=== PATIENT | female | born 1940 | race Caucasian/White ===

== ENCOUNTER → 2019-05-13 13:04 | Outpatient (CLI) | payer MEDICARE, OTHER, SELFPAY ==
--- NOTE | 2019-05-13 | DI.US.S_ITS ---
PROCEDURE: US PARACENTESIS INDICATIONS: ANEMIA, ascites TECHNIQUE: The indications, alternatives, benefits, risks, and complications of the procedure were explained to the patient. Written informed consent was obtained and placed in the chart. The abdomen and pelvis were examined sonographically, and an appropriate site was chosen for paracentesis. The skin was prepared and draped in the usual sterile fashion, and 1% lidocaine was infiltrated from the skin down through the peritoneal surface. A 19-gauge catheter-covered needle was then introduced into the peritoneal space, the catheter was advanced and the needle was withdrawn, and thereafter peritoneal fluid was withdrawn. The catheter was then removed and a dressing was applied. The fluid was discarded if the clinician did not order diagnostic testing of the fluid. COMPARISON: None. FINDINGS: Access site: Right lateral abdomen body wall into the largest pocket of ascites present across the abdomen and pelvis. Needle: One-Step centesis catheter with introducer needle. Fluid volume and description: A slightly serous colored of clear fluid was obtained. 2500 cc. Fluid sent for diagnostic testing: Fluid sent at the request of the ordering health care provider with specific tests from the provider to the laboratory staff. Medications: 1% lidocaine for local anaesthesia. Complications: None. IMPRESSION: Successful ultrasound-guided paracentesis. Dictated by: Srinivasan Cantu M.D. on 05/13/2019 at 16:20 Approved by: Srinivasan Cantu M.D. on 05/13/2019 at 16:21
--- NOTE | 2019-05-13 | PATH_ITS ---
Note [facility] Accession Number: [id number] TESTS RESULT FLAG UNITS REF RANGE LAB Clinician Provided Cytology Information No. of containers..01 Other (Miscellaneous) 01 PARACENTESIS Clinician ICD10: 01 [place] K18.8 K74.60 D64.9 DIAGNOSIS: 02 PARACENTESIS NEGATIVE FOR MALIGNANT CELLS. MESOTHELIAL CELLS ARE PRESENT. Pathologist ICD10: 02 K74.60 02 Valentine Cash MD, Pathologist NPI- [id number] Ron Harris, Security Representative ([facility]) 01 80 CC, YELLOW, CLEAR /LCS 08/26/1840 0000 Local FLAG LEGEND: L-Low Normal,H-High Normal,LL-Alert Low,HH-Alert High <-Panic Low,>-Panic High,A-Abnormal,AA-Critical Abnormal Performed at: 01 =Z [facility] [address], [place] [address] Nain Wilson MD, 02 LCLWA [facility] [address] [place] [id number] Nilda Neville MD, Performed at: 01 [facility] [address], [place], [place] [id number] MD Nain Wilson MD Phone: [phone]
[2019-05-13 16:28] LABS: Albumin Body Fluid < 1.0 g/dL; Total Protein Body Fluid < 2.0 g/dL
[2019-05-13 16:32] LABS: Body Fluid Tot Nucleated Cells 159 /uL
[2019-05-13 16:36] LABS: Body Fluid Color YELLOW; Body Fluid Red Blood Cells < 1000 /uL
[2019-05-13 16:37] LABS: Body Fluid Appearance CLEAR; Body Fluid Clotted? NO CLOTS PRESENT
[2019-05-13 17:18] LABS: Eosinophils Body Fluid 1 %; Mononuclear WBC Body Fluid 72 %; Polynuclear WBC Body Fluid 13 %
[2019-05-13 17:20] LABS: Other Cells Body Fluid 14 %
== END ==
PROVIDERS: PCP Family Medicine; Visit Provider Student in an Organized Health Care Education/Training Program
DX: R18.8 Other ascites (principal); K74.60 Unspecified cirrhosis of liver; D64.9 Anemia, unspecified
CPT/HCPCS: 49083; 82042; 84157; 87070; 87075; 87205; 89051

== ENCOUNTER 2019-05-14 08:01 | Day surgery (SDC) | payer MEDICARE, OTHER, SELFPAY ==
--- NOTE | 2019-05-14 | PATH_ITS ---
[facility] Accession Number: [id number] . 01 Material submitted: . PART A: colon - ASCENDING COLON POLYP PART B: colon - DESCENDING COLON POLYP . 01 Clinical history: . IRON DEFICIENCY ANEMIA, UNSPECIFIED FUNCTIONAL DIARRHEA . 02 Diagnosis: A. Ascending Colon, Polyp, Biopsy: Tubulovillous adenoma. No evidence of malignancy or high-grade dysplasia. . B. Descending Colon, Polyp, Biopsy: Tubulovillous adenoma. No evidence of malignancy or high-grade dysplasia. [facility] 05/15/2019 1315 Local . 02 Electronically signed: . iNlda Neville MD, Pathologist NPI- [id number] . 01 Gross description: . Part A: ASCENDING COLON POLYP: Received in formalin are 2 fragment(s) of melendez, soft tissue measuring 0.2 x 0.2 x 0.2 cm to 0.3 x 0.2 x 0.2 cm which is entirely submitted and submitted entirely in 1 cassette(s) Part B: DESCENDING COLON POLYP: Received in formalin are 2 fragment(s) of melendez, soft tissue measuring 0.3 x 0.2 x 0.2 cm to 0.6 x 0.5 x 0.5 cm which is entirely submitted and submitted entirely in 1 cassette(s) /[facility] 05/14/2019 1912 Local . 02 Pathologist provided ICD-10: D12.2, D12.4 . 02 CPT . 910936, 947187 Performed at: 01 [facility] [address] [id number] MD Nain Wilson MD Phone: [phone] Performed at: 02 [facility] [address] [place], [place] [id number] MD Nilda Neville MD Phone: [phone]
[2019-05-14 08:30] VITALS: BP 116/60; PULSE 97; RESP 16; TEMP 36.6; O2SAT 94; BMI 37.1
[2019-05-14] MEDS: SODIUM CHLORIDE 0.9% 1,000 ML 70 ML IV (08:45)
--- NOTE | 2019-05-14 09:30 | PM.HP.1 ---
History of Present Illness History of Present Illness Date Patient Seen: 05/14/19 Time Patient Seen: 09:34 Chief complaint: [id number] Narrative: Patient is a 79 year old female who presented for further evaluation of anemia. Since her office visit on 05/06/19 she had paracentesis with 2 liters of fluid removed. Denies any other changes to medical history, medications or surgical history Patient History Medical History Ascites (Acute) Cirrhosis (Acute) Diabetes (Acute) Murmur, cardiac (Acute) Social History household members: none Family & Social History Social History: household members none Meds Home Medications and Allergies Home Medications Medication Instructions Recorded Confirmed Type Simvastatin (Zocor) 60 mg PO QDAY #0 06/01/10 05/14/19 History furosemide 20 mg PO DAILY 05/14/19 05/14/19 History glipizide 10 mg PO BID 05/14/19 05/14/19 History metformin 1,000 mg PO QPM 05/14/19 05/14/19 History metformin 500 mg PO DAILY 05/14/19 05/14/19 History pantoprazole 40 mg PO BID 05/14/19 05/14/19 History potassium chloride 10 meq PO DAILY 05/14/19 05/14/19 History Allergies Allergy/AdvReac Type Severity Reaction Status Date / Time No Known Drug Allergies Allergy Verified 05/14/19 08:29 Review of Systems Review of Systems ROS Unobtainable: All systems reviewed & are unremarkable except as noted in HPI and below Exam Vital Signs (past 8 hours): - 05/14/19 08:30 Temperature 97.9 F Pulse Rate 97 H Respiratory Rate 16 Blood Pressure 116/60 Pulse Oximetry 94 Oxygen Delivery Method Room Air Narrative Exam Narrative: No acute distress Const General: cooperative Nutritional Appearance: obese Orientation: alert, awake and oriented x3 HENMT Head: atraumatic Nose: external nose normal Mouth: oral mucosae normal Resp Effort & Inspection: normal respiratory effort and able to speak in complete sentences Auscultation: diminished lung sounds Cardio Rate: regular rate Rhythm: regular rhythm Heart Sounds: S1 normal, S2 normal and murmur GI Palpation: soft Auscultation: normal bowel sounds Extrem General: normal to inspection Assessment & Plan Assessment & Plan narrative: 1. Acute on Chronic Anemia 2. Cirrhosis with portal hypertension - Colonoscopy today
--- NOTE | 2019-05-14 09:56 | SUR.OPER ---
ADDING COLONOSCOPE TO EQUIPMENT
[2019-05-14] MEDS: fentaNYL 250 MCG/5 ML INJ IV (10:26)
--- NOTE | 2019-05-14 10:26 | PM.OP.ENDO ---
Operative Date/Time/Diagnoses Date of procedure: 05/14/19 Time of procedure: 09:54 Procedure & Clinicians Study performed: Colonoscopy with polypectomy Procedure Notes Procedure in detail: Surgeon: Leah Leggett DO Procedure: Colonoscopy with polypectomy Preoperative diagnosis: Anemia Postoperative diagnosis: 1. Ascending colon polyp 5mm 2. Descending colon polyp 6mm 3. Internal hemorhroids 4. Friable mucosa throughout the entire colon Medications: Conscious sedation using 4 mg IV of Midazolam and 75 mcg IV of Fentanyl Preanesthesia Assessment An H and P was performed/updated and the Px?s ASA class is 3. The procedure was discussed in detail with the patient. The potential risks and complications including infection, bleeding, missed lesions, perforation, need for surgery in case of perforation, prolonged hospital stay, and were explained. A brief question and answer period was allotted and once all questions were answered, informed consent was obtained. The patient was brought back to the procedure room and placed on standard monitoring. The patient?s vital signs were monitored continuously throughout the entire procedure. Prior to starting, a timeout was performed to confirm the patient?s identity, allergies, medications, and procedure. Procedure in detail The patient was placed in left lateral decubitus position and once adequate sedation was obtained a SARMAD was performed. The digital rectal examination did not reveal any palpable lesions. The tip of the colonoscope was placed in the anal canal and advanced without difficulty all the way to the cecum which was identified by the appendiceal orifice and the ileocecal valve. Careful examination of all hatch of the colon was performed with irrigation of any residual stool. The patient tolerated the procedure well and will be brought back to the recovery area to be discharged once criteria are met. The prep was judged to be good/excellent and adequate to identify polyps less than 5 mm. The withdrawal time was 13min. Complications There were no complications and estimated blood loss was minimal. Recommendations: Resume previous diet Continue outPx medications Follow up pathology results Repeat colonoscopy in 5 years Office follow up as previously scheduled An emergency contact number was given to the patient for any complications related to the procedure Scope withdrawal time: 13 min Sedation minutes: 31
[2019-05-14] MEDS: MIDAZOLAM 5 MG/5 ML VIAL IV (10:28)
[2019-05-14 10:33] VITALS: BP 123/59; PULSE 89; RESP 19; TEMP 36.4; O2SAT 94
[2019-05-14 10:38] VITALS: BP 116/68; PULSE 82; RESP 21; O2SAT 95
[2019-05-14 10:43] VITALS: BP 120/64; PULSE 85; RESP 20; TEMP 36.5; O2SAT 95
[2019-05-14 10:55] VITALS: BP 120/60; PULSE 66; RESP 16; TEMP 36.7; O2SAT 99
== END 2019-05-14 11:00 | disposition home or self-care (01) ==
LOC: ENDO 08:05
PROVIDERS: Family Provider Family Medicine; PCP Family Medicine; Visit Provider Student in an Organized Health Care Education/Training Program
PROC: 0DJ08ZZ Inspection of Upper Intestinal Tract, Via Natural or Artificial Opening Endoscopic (ICD-10-PCS; CPT 43235; principal; 2019-05-14 09:30)
DX: Z87.19 Personal history of other diseases of the digestive system (principal); D64.9 Anemia, unspecified; K59.1 Functional diarrhea; K74.60 Unspecified cirrhosis of liver; K64.8 Other hemorrhoids; D12.2 Benign neoplasm of ascending colon; D12.4 Benign neoplasm of descending colon
CPT/HCPCS: 45380; J2250; J3010

== ENCOUNTER → 2020-02-06 12:38 | Outpatient (CLI) | payer MEDICARE, OTHER, SELFPAY ==
--- NOTE | 2020-02-06 | DI.MRI.S_ITS ---
PROCEDURE: MR ABDOMEN WO/W CON INDICATIONS: Abnormal abdominal imaging, cirrhosis of liver, hepatic encephalopathy. TECHNIQUE: Coronal HASTE, axial 2D FLASH in- and [id number]; axial breath-hold T2 FSE. Dynamic axial VIBE during the administration of contrast; post-contrast coronal VIBE or 2D FLASH with fat saturation from the hepatic dome to the iliac crests. Optional diffusion weighted imaging and ADC may be performed. COMPARISON: None. FINDINGS: Image quality: There is motion artifact and magnetic susceptibility artifact in the left upper quadrant limiting evaluation. Lung bases: There is a small left pleural effusion partially visualized.. Heart size is mildly enlarged. Solid organs: There is a small cyst in the left hepatic lobe within segment 3 measure approximately 0.3 cm. Elsewhere, no discrete hepatic mass or suspicious enhancement identified. Evaluation of the left hepatic lobe in segment 2 is limited by the adjacent magnetic susceptibility artifact. Gallbladder appears within normal limits without gallstones. Biliary system is non dilated. Pancreas is normal in morphology. Spleen is enlarged, measuring up to 15.2 cm. No adrenal nodules. Both kidneys demonstrate normal size and enhancement, without hydronephrosis. Nodes and vessels: No retroperitoneal or mesenteric adenopathy by size criteria. Aorta and inferior vena cava are normal in size. There are gastroesophageal and splenic varices. Bowel and peritoneum: Visualized bowel loops are normal in caliber. No free fluid. Bones and soft tissues: No ventral hernias. Bone marrow is normal in overall signal. IMPRESSION: 1. No discrete hepatic mass or suspicious enhancement to suggest a hepatoma. 2. Splenomegaly as well as gastroesophageal and perisplenic varices consistent with portal hypertension. No ascites. Dictated by: Nain Matthew M.D. on 02/06/2020 at 16:03 Approved by: Nain Matthew M.D. on 02/06/2020 at 16:20
== END ==
PROVIDERS: Family Provider Family Medicine; PCP Family Medicine; Referring Provider Student in an Organized Health Care Education/Training Program; Visit Provider Student in an Organized Health Care Education/Training Program
DX: R93.5 Abnormal findings on diagnostic imaging of other abdominal regions, including retroperitoneum (principal); R16.1 Splenomegaly, not elsewhere classified; K72.90 Hepatic failure, unspecified without coma; I85.10 Secondary esophageal varices without bleeding; I86.8 Varicose veins of other specified sites; K74.60 Unspecified cirrhosis of liver; D64.9 Anemia, unspecified
CPT/HCPCS: 74183; A9579

== ENCOUNTER → 2021-02-07 11:30 | Outpatient (CLI) | payer MEDICARE, OTHER, SELFPAY ==
[2021-02-07 12:37] LABS: COVID19 -Nasal RAPID Negative (Negative)
== END ==
PROVIDERS: Family Provider Family Medicine; PCP Family Medicine; Visit Provider Physician Assistant
DX: Z01.812 Encounter for preprocedural laboratory examination (principal); Z20.822 Contact with and (suspected) exposure to COVID-19
CPT/HCPCS: 87635; C9803

== ENCOUNTER 2021-02-09 11:36 | Day surgery (SDC) | payer MEDICARE, OTHER, SELFPAY ==
[2021-02-09] VITALS (7 sets, daily range): BP systolic 104–128; BP diastolic 51–70; PULSE 62–69; RESP 12–18; TEMP 36.6–36.7; O2SAT 95–100; BMI 36.8
--- NOTE | 2021-02-09 | PATH_ITS ---
[facility] Accession Number: [id number] . 01 Material submitted: . stomach - GASTRIC . 02 Diagnosis: Stomach, Biopsy: Antral mucosa with mild reactive gastropathy. Negative for Helicobacter by immunohistochemistry. Negative for intestinal metaplasia by alcian blue stain. Negative for dysplasia and malignancy. [facility] 02/14/2021 1611 Local . 02 Electronically signed: . Nilda Neville MD, Pathologist NPI- [id number] . 01 Gross description: . GASTRIC: Received in formalin are 2 fragment(s) of melendez, soft tissue measuring 0.1 x 0.1 x 0.1 cm to 0.3 x 0.3 x 0.2 cm submitted entirely in 1 cassette(s) /[facility] 02/10/2021 0141 Local . 02 Microscopic: . An immunohistochemical stain was performed to evaluate for Helicobacter organisms and is negative. An alcian blue stain was performed to evaluate for intestinal metaplasia and is negative. Both control stains showed appropriate reactivity. . * This test was developed and its performance characteristics determined by [facility]. It has not been cleared or approved by the U.S. Food and Drug Administration. The FDA has determined that such clearance or approval is not necessary. This test is used for clinical purposes. It should not be regarded as investigational or for research. . 02 Pathologist provided ICD-10: K74.60 . 02 CPT . 052513, 536024, V16104 Performed at: 01 [facility] [address], [place], [place] [id number] MD Nain Wilson MD Phone: [phone] Performed at: 02 [facility] [address] [place], [place] [id number] MD Nilda Neville MD Phone: [phone]
[2021-02-09] MEDS: SODIUM CHLORIDE 0.9% 1,000 ML 70 ML IV (12:11)
--- NOTE | 2021-02-09 12:46 | PM.HP.1 ---
History of Present Illness History of Present Illness Date Patient Seen: 02/09/21 Time Patient Seen: 12:48 Chief complaint: SDC Narrative: Patient is a very pleasant 80-year-old female who presented for upper endoscopy. She does have a known history of ZHAO cirrhosis and has a history of gastric and esophageal varices. She has undergone tips procedure due to bleeding in the past. She also has a history of a gastric ulcer. She is due for repeat upper endoscopy. Patient History Medical History (Updated 02/09/21 @ 11:13 by Carmenza Li RN) Anxiety Ascites Bruises easily Change in weight Chronic anemia Cirrhosis Congestive heart failure Diabetes Difficulty walking Esophageal and gastric varices Hard of hearing History of anemia Hyperlipidemia Hypertension Internal hemorrhoids Joint pain Memory loss Murmur, cardiac Obesity Pleural effusion Recurrent falls Splenomegaly Type 2 diabetes mellitus Weakness Surgical History (Updated 02/09/21 @ 11:59 by Allie Sher RN) H/O vein stripping History of bilateral knee arthroplasty History of esophagogastroduodenoscopy (EGD) History of tonsillectomy S/P TIPS (transjugular intrahepatic portosystemic shunt) Family & Social History Social History: household members none Tobacco & Substance use: Smoking Status Former smoker alcohol intake never Substance Use Type does not use Meds Home Medications and Allergies Home Medications Medication Instructions Recorded Confirmed Type furosemide 40 mg PO BID 05/14/19 02/09/21 History pantoprazole 40 mg PO BID 05/14/19 02/09/21 History potassium chloride 10 meq PO DAILY 05/14/19 02/09/21 History cholecalciferol (vitamin D3) 25 mcg PO DAILY 02/09/21 02/09/21 History [Vitamin D3] ferrous gluconate [Fergon] 225 mg PO BID 02/09/21 02/09/21 History glipizide 5 mg PO DAILY 02/09/21 02/09/21 History lactulose 20 g PO SEEINSTR 02/09/21 02/09/21 History rifaximin [Xifaxan] 550 mg PO BID 02/09/21 02/09/21 History spironolactone 50 mg PO DAILY 02/09/21 02/09/21 History Allergies Allergy/AdvReac Type Severity Reaction Status Date / Time No Known Drug Allergies Allergy Verified 05/14/19 08:29 Review of Systems Review of Systems ROS: Yes All systems reviewed with the patient and are negative except as otherwise documented Exam Vital Signs (past 8 hours): - 02/09/21 12:00 Temperature 98.0 F Pulse Rate 69 Respiratory Rate 18 Blood Pressure 125/64 Pulse Oximetry 97 Oxygen Delivery Method Room Air Oxygen Flow Rate 0 Const General: cooperative, comfortable, well developed and well groomed Nutritional Appearance: obese Orientation: alert, awake and oriented x3 HENMT Head: normocephalic and atraumatic Resp Effort & Inspection: normal respiratory effort and able to speak in complete sentences Auscultation: clear to auscultation bilaterally Cardio Rate: regular rate Rhythm: regular rhythm Heart Sounds: S1 normal and S2 normal GI Palpation: soft Auscultation: normal bowel sounds Psych Appearance: grossly normal Assessment & Plan Assessment & Plan narrative: 1. History of decompensated cirrhosis, history of gastric and esophageal varices 2. History of gastric ulcer EGD today, further recommendations
[2021-02-09] MEDS: MIDAZOLAM 5 MG/5 ML VIAL IV (13:06)
[2021-02-09] MEDS: LIDOCAINE 4% SOLN 50 ML 20 ML TOP (13:06)
[2021-02-09] MEDS: fentaNYL 250 MCG/5 ML INJ IV (13:07)
--- NOTE | 2021-02-09 13:23 | P.OP.ENDO_ITS ---
Operative Date/Time/Diagnoses Date of procedure: 02/09/21 Time of procedure: 13:06 Procedure Notes Procedure in detail: Surgeon: Leah Leggett DO Procedure: Esophagogastroduodenoscopy with biopsy Preoperative diagnosis: 1. Decompensated cirrhosis, history of esophageal and gastric varices 2. History of gastric ulcer Postoperative diagnosis: 1. Gastritis, biopsied to rule out H pylori 2. Hemoclip still in place from gastric ulcer 3. Small gastric varices Medications: Conscious sedation using 4 mg IV of Midazolam and 50 mcg IV of Fentanyl Preanesthesia Assessment An H and P was performed/updated and the Px?s ASA class is 3. The procedure was discussed in detail with the patient. The potential risks and complications including infection, bleeding, missed lesions, perforation, need for surgery in case of perforation, prolonged hospital stay, and were explained. A brief question and answer period was allotted and once all questions were answered, informed consent was obtained. The patient was brought back to the procedure room and placed on standard monitoring. The patient?s vital signs were monitored continuously throughout the entire procedure. Prior to starting, a timeout was performed to confirm the patient?s identity, allergies, medications, and procedure. Procedure in detail The patient was placed in left lateral decubitus position and a bite block was inserted. The tip of the upper endoscope was placed into the mouth and advanced without difficulty under direct visualization into the esophagus. Esophagus: Normal-appearing esophagus, no further varices status post tips Stomach: Gastritis, biopsied to rule out H pylori Small gastric varices in the fundus and cardia Duodenum: Normal-appearing duodenum The patient tolerated the procedure well and will be brought back to the recovery area to be discharged once criteria are met. The total physician intraservice time was 7min. Complications There were no complications and estimated blood loss was minimal. Recommendations: Resume previous diet Continue outPx medications Follow up pathology results Repeat EGD in 1-2 years Office follow up as previously scheduled An emergency contact number was given to the patient for any complications rela rubén to the procedure
== END 2021-02-09 14:10 | disposition home or self-care (01) ==
PROVIDERS: Family Provider Family Medicine; PCP Family Medicine; Referring Provider Student in an Organized Health Care Education/Training Program; Visit Provider Student in an Organized Health Care Education/Training Program
PROC: 0DJ08ZZ Inspection of Upper Intestinal Tract, Via Natural or Artificial Opening Endoscopic (ICD-10-PCS; CPT 43235; principal; 2021-02-09 13:00)
DX: K74.69 Other cirrhosis of liver (principal); I86.4 Gastric varices; K29.50 Unspecified chronic gastritis without bleeding; I50.9 Heart failure, unspecified; E11.9 Type 2 diabetes mellitus without complications; Z91.81 History of falling; I10 Essential (primary) hypertension; D53.9 Nutritional anemia, unspecified
CPT/HCPCS: 43239; J2250; J3010

== ENCOUNTER → 2021-02-14 11:17 | Outpatient (CLI) | payer MEDICARE, OTHER, SELFPAY ==
[2021-02-14 12:34] LABS: BUN Creatinine Ratio 22.2 (6-22); Blood Urea Nitrogen 12 mg/dL (7-17); Estimated Glomerular Filt Rate > 60.0 mL/min (>60)
--- NOTE | 2021-02-14 12:41 | DI.CT.S_ITS ---
PROCEDURE: CT ABDOMEN WO/W CON INDICATIONS: Abnormal findings on diagnostic imaging of other a TECHNIQUE: 4 phase scanning was performed. Non-contrast 5 mm axial sections acquired from the diaphragm to the iliac crests. Following the administration of intravenous contrast, 5 mm thick arterial-phase, portal venous-phase, and 5-minute delayed phase images were acquired through the liver. 5 mm thick coronal and sagittal reformats were performed. For radiation dose reduction, the following was used: automated exposure control, adjustment of mA and/or kV according to patient size. COMPARISON: [facility], , MR ABDOMEN WO/W CON, 02/06/2020, 13:10. FINDINGS: Image quality: Excellent. Lung bases: Lung bases are clear. Heart size is normal. Liver: Nodular liver surface contour. No arterial hyperenhancing or washout observations. Tiny hypodense focus in the left lobe of the liver without enhancement. On prior MRI this is T2 hyperintense and consistent with a benign cyst. Other solid organs: Gallbladder is unremarkable. Biliary system is non dilated. Pancreas is normal in morphology. Spleen is enlarged measuring 14 cm. No adrenal nodules. Both kidneys demonstrate normal size and enhancement, without hydronephrosis or nephrolithiasis. Nodes and vessels: No retroperitoneal or mesenteric adenopathy by size criteria. Tips shunt opacifies with contrast. Portal vein appears patent. Vascular clips near the splenic hilum. Splenic vein is enlarged. A small upper abdominal varices. Conventional and patent hepatic arterial anatomy. Aorta and inferior vena cava are normal in size. Bowel and peritoneum: Unenhanced bowel loops are normal in caliber. No free fluid or air. No ascites. Bones: No suspicious bony lesions. No vertebral body compression fractures. Mild anterolisthesis of L3 on L4. Miscellaneous: No ventral hernias. Fat containing right Bochdalek hernia. Abdominal wall varices. IMPRESSION: 1. No LR 4 or LR 5 observations to suggest HCC. 2. Cirrhotic liver morphology. Splenomegaly. Portal hypertension. TIPS shunt. 3. No ascites. Recommend continued HCC screening. Dictated by: Juan R Whitley M.D. on 02/14/2021 at 16:48 Approved by: Juan R Whitley M.D. on 02/14/2021 at 16:56
== END ==
PROVIDERS: Family Provider Family Medicine; PCP Family Medicine; Referring Provider Student in an Organized Health Care Education/Training Program; Visit Provider Student in an Organized Health Care Education/Training Program
DX: R93.5 Abnormal findings on diagnostic imaging of other abdominal regions, including retroperitoneum (principal); K74.60 Unspecified cirrhosis of liver; R16.1 Splenomegaly, not elsewhere classified; K76.6 Portal hypertension
CPT/HCPCS: 36415; 74170; 82565; 84520

== ENCOUNTER → 2021-08-12 09:36 | Outpatient (CLI) | payer MEDICARE, OTHER, SELFPAY ==
--- NOTE | 2021-08-12 09:38 | DI.US.S_ITS ---
PROCEDURE: US ABDOMEN COMPLETE INDICATIONS: Abnormal findings on diagnostic imaging of other a TECHNIQUE: Real-time scanning was performed of the abdominal and retroperitoneal organs, with image documentation. COMPARISON: [facility], CT, CT ABDOMEN WO/W CON, 02/14/2021, 12:45. FINDINGS: Liver: Coarsened echotexture. No solid mass. The patient's TIPS shunt is patent. Gallbladder: No gallbladder wall thickening or pericholecystic fluid. Biliary ducts: Intrahepatic bile ducts are non-dilated. Extrahepatic bile duct caliber measures 4.5 mm. Normal is 6-7 mm or less in diameter, or 10 mm or less post-cholecystectomy. Pancreas: Visualized portions of the pancreas are sonographically normal. Spleen: Normal contour. Enlarged, measuring up to 15 cm. Kidneys: Kidneys are normal in size and echotexture. Right kidney measures 11.4 cm long; left kidney measures 12 cm long. No hydronephrosis or nephrolithiasis. No solid masses. Aorta: Visualized aorta is normal in caliber at less than 3 cm. Iliacs: Obscured by bowel gas. IVC: Not well seen. Miscellaneous: No free abdominal fluid. IMPRESSION: 1. Mild splenomegaly. Dictated by: Anthony Coyne M.D. on 08/12/2021 at 11:37 Approved by: Anthony Coyne M.D. on 08/12/2021 at 11:42
== END ==
PROVIDERS: Family Provider Family Medicine; PCP Family Medicine; Referring Provider Student in an Organized Health Care Education/Training Program; Visit Provider Student in an Organized Health Care Education/Training Program
DX: R93.5 Abnormal findings on diagnostic imaging of other abdominal regions, including retroperitoneum (principal); K74.60 Unspecified cirrhosis of liver; R16.1 Splenomegaly, not elsewhere classified
CPT/HCPCS: 76700

== ENCOUNTER → 2021-10-25 10:32 | Outpatient (CLI) | payer MEDICARE, OTHER, SELFPAY ==
--- NOTE | 2021-10-25 | DI.RAD.S_ITS ---
PROCEDURE: XR ABDOMEN MIN 2V INDICATIONS: Right upper quadrant pain TECHNIQUE: 2 views of the abdomen were acquired. COMPARISON: None. FINDINGS: Surgical changes and devices: Tips shunt catheter and splenic venous variceal coiling noted. Bowel: No pneumoperitoneum. The bowel gas pattern is normal. Soft tissues: No masses; visualized solid organ contours appear normal in size. No suspicious abdominal calcifications. Bones: No suspicious bony abnormalities. IMPRESSION: Nonobstructive bowel gas pattern TIPS catheter in venous coiling noted Approved by: Robb Moore M.D. on 10/25/2021 at 17:05
== END ==
PROVIDERS: Family Provider Family Medicine; PCP Family Medicine; Referring Provider Surgery; Visit Provider Surgery
DX: R10.11 Right upper quadrant pain (principal); R93.5 Abnormal findings on diagnostic imaging of other abdominal regions, including retroperitoneum
CPT/HCPCS: 74019

== ENCOUNTER → 2021-11-29 09:29 | Outpatient (CLI) | payer MEDICARE, OTHER, SELFPAY ==
--- NOTE | 2021-11-29 | DI.CT.S_ITS ---
PROCEDURE: CT ABDOMEN WO/W CON INDICATIONS: Abnormal findings on diagnostic imaging of ABD TECHNIQUE: 4 phase scanning was performed. Non-contrast 5 mm axial sections acquired from the diaphragm to the iliac crests. Following the administration of intravenous contrast, 5 mm thick arterial-phase, portal venous-phase, and 5-minute delayed phase images were acquired through the liver. 5 mm thick coronal and sagittal reformats were performed. For radiation dose reduction, the following was used: automated exposure control, adjustment of mA and/or kV according to patient size. COMPARISON: [facility], CT, CT ABDOMEN WO/W CON, 02/14/2021, 12:45. FINDINGS: Image quality: Excellent. Lung bases: Lung bases are clear. Heart size is normal. Liver: Multinodular surface and a somewhat small right lobe and prominent left lobe, consistent with cirrhosis. A patent TIPS shunt between the posterior right hepatic vein and portal vein remains patent. No focal liver masses. Other solid organs: Gallbladder is unremarkable. Biliary system is non dilated. Pancreas is normal in morphology. Unchanged splenomegaly, measuring 13.1 cm. Splenic hilar coils. . No adrenal nodules. Both kidneys demonstrate normal size and enhancement, without hydronephrosis or nephrolithiasis. Nodes and vessels: No retroperitoneal or mesenteric adenopathy by size criteria. Aorta and inferior vena cava are normal in size. Bowel and peritoneum: Unenhanced bowel loops are normal in caliber. No free fluid or air. Bones: No suspicious bony lesions. No vertebral body compression fractures. Miscellaneous: No ventral hernias. IMPRESSION: 1. Cirrhosis without evidence of hepatoma. 2. TIPS shunt remains patent. 3. Splenomegaly, as before. Dictated by: Wild Graham M.D. on 11/29/2021 at 12:27 Approved by: Wild Graham M.D. on 11/29/2021 at 12:30
[2021-11-29 10:25] LABS: BUN Creatinine Ratio 14.5 (6-22); Blood Urea Nitrogen 8 mg/dL (7-17); Estimated Glomerular Filt Rate > 60.0 mL/min (>60)
== END ==
PROVIDERS: Family Provider Family Medicine; PCP Family Medicine; Referring Provider Student in an Organized Health Care Education/Training Program; Visit Provider Student in an Organized Health Care Education/Training Program
DX: R93.5 Abnormal findings on diagnostic imaging of other abdominal regions, including retroperitoneum (principal); K74.60 Unspecified cirrhosis of liver; R16.1 Splenomegaly, not elsewhere classified
CPT/HCPCS: 36415; 74170; 82565; 84520; Q9967

== ENCOUNTER 2022-09-25 09:30 | Day surgery (SDC) | payer MEDICARE, OTHER, SELFPAY ==
--- NOTE | 2022-09-25 | PATH_ITS ---
[facility] Accession Number: [id number] No. of containers..02 Tissue . 01 Material submitted: . PART A: gastrointestinal site - ANTRAL NODULE PART B: colon - CECAL POLYP . 01 Diagnosis: A. Antral Nodule, Biopsy: Gastric antral mucosa with reactive foveolar hyperplasia, consistent with early gastric hyperplastic polyp. Negative for Helicobacter organisms by immunohistochemistry. Negative for intestinal metaplasia. Negative for dysplasia or malignancy. . B. Cecal Polyp: Tubular adenoma. [facility] 10/02/2022 1757 Local . 01 Electronically signed: . Nate Gruber MD, PhD, Pathologist NPI- [id number] . 01 Gross description: . A. Received with patient identification, labeled with the patient's name. Labeled antral nodule are two fragments of light estevez-melendez soft tissue that range in size from less than 0.1 cm to 0.2 x 0.1 x 0.1 cm. Totally submitted in cassette A. B. No identification. ID confirmed per client. No source on container, arbitrarily designated B. The specimen consists of a 0.1 cm in greatest dimension, estevez-melendez portion of tissue. Totally submitted in cassette B. ([id number]) /Ananth 09/27/2022 0357 Local . 01 Microscopic: . A. An immunohistochemical stain was performed to evaluate for Helicobacter organisms and is negative. The control stain showed appropriate reactivity. . * This test was developed and its performance characteristics determined by [employer]. It has not been cleared or approved by the U.S. Food and Drug Administration. The FDA has determined that such clearance or approval is not necessary. This test is used for clinical purposes. It should not be regarded as investigational or for research. . 01 Pathologist provided ICD-10: K31.7, D12.0 . 01 CPT . 397451, 600723, S10329 Performed at: [facility] [address] [place] [address], [place], [place] [id number] MD Nain Wilson MD Phone: [phone]
[2022-09-25 09:14] VITALS: BMI 27.7
[2022-09-25 09:24] VITALS: BMI 38.7
[2022-09-25] MEDS: LACTATED RINGERS 1,000 ML 42 ML IV (09:26)
[2022-09-25 09:27] VITALS: BP 129/69; PULSE 85; RESP 16; TEMP 36.6; O2SAT 93
--- NOTE | 2022-09-25 09:35 | PM.HP.1 ---
History of Present Illness History of Present Illness Date Patient Seen: 09/25/22 Time Patient Seen: 09:35 Chief complaint: SDC Narrative: I reviewed my office note. No significant changes. Patient History Medical History Anxiety Ascites Bruises easily Change in weight Chronic anemia Cirrhosis Congestive heart failure Diabetes Difficulty walking Esophageal and gastric varices Hard of hearing History of anemia Hyperlipidemia Hypertension Internal hemorrhoids Joint pain Memory loss Murmur, cardiac Obesity Pleural effusion Recurrent falls Splenomegaly Type 2 diabetes mellitus Weakness Surgical History H/O vein stripping History of bilateral knee arthroplasty History of esophagogastroduodenoscopy (EGD) History of tonsillectomy S/P TIPS (transjugular intrahepatic portosystemic shunt) Family & Social History Social History: household members family,none Tobacco & Substance use: Tobacco type cigarettes Smoking Status Former smoker alcohol intake never Substance Use Type does not use Meds Home Medications and Allergies Home Medications Medication Instructions Recorded Confirmed Type furosemide 20 mg tablet 40 mg PO BID 05/14/19 09/25/22 History pantoprazole 40 mg tablet,delayed 40 mg PO BID 05/14/19 09/25/22 History release potassium chloride 10 mEq 10 meq PO DAILY 05/14/19 09/25/22 History tablet,extended release cholecalciferol (vitamin D3) 25 25 mcg PO DAILY 02/09/21 09/25/22 History mcg (1,000 unit) tablet (Vitamin D3) ferrous gluconate 225 mg (27 mg 225 mg PO BID 02/09/21 09/25/22 History iron) tablet (Fergon) glipizide 5 mg tablet 5 mg PO DAILY 02/09/21 09/25/22 History lactulose 10 gram/15 mL oral 20 g PO SEEINSTR 02/09/21 09/25/22 History solution rifaximin 550 mg tablet (Xifaxan) 550 mg PO BID 02/09/21 09/25/22 History spironolactone 25 mg tablet 50 mg PO DAILY 02/09/21 09/25/22 History Allergies Allergy/AdvReac Type Severity Reaction Status Date / Time No Known Drug Allergies Allergy Verified 09/25/22 08:25 Review of Systems Review of Systems ROS: Yes All systems reviewed with the patient and are negative except as otherwise documented Exam Vital Signs (past 8 hours): - 09/25/22 09:14 09/25/22 09:27 Temperature 97.9 F Pulse Rate 85 Respiratory Rate 16 Blood Pressure 129/69 Pulse Oximetry 93 Oxygen Delivery Method Room Air Room Air Oxygen Delivery Method Room Air Const General: cooperative HENMT Head: normal to inspection Eyes General: appearance normal, both eyes and all related structures Neck Neck: normal visual inspection Chest Chest: normal inspection of the chest Resp Effort & Inspection: normal respiratory effort Cardio Rate: regular rate GI Inspection: normal to inspection Skin General: no rashes or lesions noted Neuro General: patient alert and patient awake Extrem General: normal to inspection and no pedal edema Psych Appearance: grossly normal Assessment & Plan Assessment & Plan narrative: 82-year-old female with cirrhosis. She is a personal history of colon polyps. EGD for variceal screening and colonoscopy are pursued today. Time Spent With Patient Critical Care time: I spent a total of [] minutes of critical care time on this patient's care today; this time is exclusive of procedural time.
--- NOTE | 2022-09-25 09:36 | PM.PREOP ---
Pre-operative Note Interval Note History & Physical reviewed/Exam performed by Physician: Yes Changes to H&P: No ASA Class (for procedural sedation): III
--- NOTE | 2022-09-25 10:14 | PM.OP.EC ---
Operative Date/Time/Diagnoses Date of procedure: 09/25/22 Time of procedure: 10:15 Pre-op diagnosis: Cirrhosis variceal screening personal history of colon polyps Post-op diagnosis: same Procedure & Clinicians Study performed: EGD with biopsies and a colonoscopy with cold forceps polypectomy Same procedure as scheduled: Yes Indications: Variceal screen personal history of colon polyps Surgeon: Ernesto Wharton Procedure Notes SCOAP/Timeout: Done Procedure in detail: After the risks and benefits were explained, written and verbal informed consent was obtained. The patient was brought into the procedure room and placed into the left lateral decubitus position. Please see nurse geosciences associate professor notes for sedation details. The scope was introduced into the mouth through the bite block and advanced under direct visualization to the 2nd portion of the duodenum. The scope was slowly withdrawn carefully examining the mucosa for any defects or lesions. Retroflexed views were accomplished in the stomach. The stomach was decompressed, the scope was then removed from the patient who tolerated the procedure well. The patient was then turned around, a digital rectal examination accomplished. The scope was introduced into the rectum and advanced to the cecum as identified by the appendiceal orifice and ileocecal valve. The scope was slowly withdrawn to carefully examine the mucosa for any defects or lesions. Multiple direct views were made through the dentate line for exclusion of pathology. The colon was decompressed. The scope was removed from the patient who tolerated the procedure well. Adult colonoscope Bowel prep adequate Scope withdrawal time: 12 minutes Sedation minutes: 31 Complications: none Impression: 1. Duodenum: No gross lesions from the bulb through to the 2nd portion. 2. Stomach: There was a 8-9 mm nodule in the pre-pyloric region and this was biopsied for histopathology. Otherwise no significant mucosal pathology throughout. No evidence of any gastric varices including retroflexed views. Diffuse mild gastropathy. 3. Esophagus: The squamocolumnar junction correlated with the top of the gastric folds. GEJ was at about 42-43 cm from the incisors. No evidence of esophagitis. No evidence of any esophageal varices. 4. Colon: Scant diverticulosis in the left colon. There was a diminutive colon polyp in the cecum removed with cold forceps. Grade 1 to grade 2 internal hemorrhoids were noted. No additional pathology was appreciated throughout. Endoscopic diagnosis 1. Mild gastropathy 2. Pre-pyloric nodule 3. Diminutive colon polyp 4. Grade 2 hemorrhoids 5. Diverticulosis Post-procedure Plan for aftercare: 1. Await histopathology. 2. Follow up GI clinic and continue to monitor for TIPS patency Disposition: PACU
[2022-09-25 10:17] VITALS: BP 114/49; PULSE 81; RESP 16; TEMP 36.3; O2SAT 94
[2022-09-25 10:22] VITALS: BP 117/55; PULSE 80; RESP 15; O2SAT 95
[2022-09-25 10:27] VITALS: BP 119/58; PULSE 75; RESP 20; O2SAT 95
[2022-09-25 10:32] VITALS: BP 119/58; PULSE 74; RESP 16; O2SAT 97
[2022-09-25 10:45] VITALS: BP 125/48; PULSE 76; RESP 16; O2SAT 96
--- NOTE | 2022-09-25 10:53 | SUR.PHASEII ---
1050: Pt A&Ox4, denies any distress, abdomen soft, VSS, and ready to discharge home. Discharge instructions reviewed with patient and daughter with time allowed for questions. IV DC'd intact. Pt left unit with all personal belongings and written discharge instructions, via w\c to ER entrance where daughter will transport pt home.
== END 2022-09-25 17:00 | disposition home or self-care (01) ==
LOC: ENDO 11-14 14:33
PROVIDERS: Internal Medicine Gastroenterology; Family Provider Family Medicine; PCP Family Medicine; Referring Provider Internal Medicine Gastroenterology; Visit Provider Internal Medicine Gastroenterology
PROC: 0DJ08ZZ Inspection of Upper Intestinal Tract, Via Natural or Artificial Opening Endoscopic (ICD-10-PCS; CPT 43235; principal; 2022-09-25 09:30)
PROC: 0DJD8ZZ Inspection of Lower Intestinal Tract, Via Natural or Artificial Opening Endoscopic (ICD-10-PCS; CPT 45378; 2022-09-25 09:30)
DX: Z12.11 Encounter for screening for malignant neoplasm of colon (principal); Z86.010 Personal history of colon polyps; Z09 Encounter for follow-up examination after completed treatment for conditions other than malignant neoplasm; Z87.19 Personal history of other diseases of the digestive system; K74.60 Unspecified cirrhosis of liver; K31.9 Disease of stomach and duodenum, unspecified; K57.30 Diverticulosis of large intestine without perforation or abscess without bleeding; K64.0 First degree hemorrhoids; K31.7 Polyp of stomach and duodenum; D12.0 Benign neoplasm of cecum
CPT/HCPCS: 43202; 45380; J2704; J3010

== ENCOUNTER → 2024-02-14 08:57 | Outpatient (CLI) | payer MEDICARE, OTHER, SELFPAY ==
--- NOTE | 2024-02-14 08:59 | DI.US.S_ITS ---
PROCEDURE: US ABDOMEN LIMITED INDICATIONS: Abnormal levels of other serum enzymes TECHNIQUE: Real-time scanning was performed of the abdominal and retroperitoneal organs, with image documentation. COMPARISON: [facility], US, US ABDOMEN COMPLETE, 08/12/2021, 10:13. FINDINGS: Liver: Liver is normal in size . Slightly coarse liver parenchymal echotexture is seen. Tips shunt catheter is seen and is patent. Gallbladder: There is no gallstone. No gallbladder wall thickening or pericholecystic fluid. No sonographic Andino's sign. Biliary ducts: Intrahepatic bile ducts are non-dilated. Extrahepatic bile duct caliber measures 4.8 mm. Normal is 6-7 mm or less in diameter, or 10 mm or less post-cholecystectomy. Pancreas: Visualized portions of the pancreas are sonographically normal. Miscellaneous: No free abdominal fluid. IMPRESSION: 1. Slight coarsely echogenic liver parenchyma. No discrete hepatic lesion. 2. Tips shunt catheter is patent and show normal direction of flow. 3. Normal appearing gallbladder. No biliary ductal dilatation. Normal appearing visualized portion of pancreas. Dictated by: Barrington Rodrigues M.D. on 02/14/2024 at 10:51 Approved by: Barrington Rodrigues M.D. on 02/14/2024 at 13:57
== END ==
PROVIDERS: Family Provider Family Medicine; PCP Family Medicine; Referring Provider Physician Assistant; Visit Provider Physician Assistant
DX: K74.60 Unspecified cirrhosis of liver (principal); R18.8 Other ascites; R10.11 Right upper quadrant pain; E80.6 Other disorders of bilirubin metabolism; R74.8 Abnormal levels of other serum enzymes
CPT/HCPCS: 76705

== ENCOUNTER → 2024-02-15 09:36 | Outpatient (CLI) | payer MEDICARE, OTHER, SELFPAY ==
--- NOTE | 2024-02-15 09:39 | DI.CT.S_ITS ---
PROCEDURE: CT ABDOMEN WO/W CON INDICATIONS: Unspecified cirrhosis of liver TECHNIQUE: 4 phase scanning was performed. Non-contrast 5 mm axial sections acquired from the diaphragm to the iliac crests. Following the administration of intravenous contrast, 5 mm thick arterial-phase, portal venous-phase, and 5-minute delayed phase images were acquired through the liver. 5 mm thick coronal and sagittal reformats were performed. For radiation dose reduction, the following was used: automated exposure control, adjustment of mA and/or kV according to patient size. COMPARISON: [facility], CT, CT ABDOMEN WO/W CON, 11/29/2021, 10:45. FINDINGS: Image quality: Diagnostic Lower chest: Right Bochdalek's hernia containing fat at this time. Mild basal reticulation. Scattered scarring and atelectasis. No pleural effusions. Mitral annular calcifications. Cardiomegaly. Liver: Tips in place. This appears patent on limited CT evaluation. No hypervascular lesion identified. Cirrhotic contour. A small subcapsular hypoattenuating region appears nonenhancing in the left lobe and is stable, LR 2. Gallbladder and biliary system: Mildly distended gallbladder. No biliary ductal dilation Pancreas: Nomx-em-vvduszif pancreatic wall atrophy. No ductal dilation Spleen: Splenomegaly. Postsurgical changes adjacent to the hilum Adrenals: No discrete nodule Kidneys: No solid mass or hydronephrosis Vessels and lymph nodes: TIPS in place. 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 Overall appearance is similar to prior. No occlusive thrombus identified. No abdominal aortic aneurysm. There are atherosclerotic calcifications. Bowel and peritoneum: No evidence of small bowel obstruction. No pathologic ascites. Body wall: Tiny fat containing umbilical hernia Bones: Degenerative changes. Trace anterolisthesis of L3 on L4. IMPRESSION: No LR 3, 4, or 5 lesion identified. In the setting of cirrhosis, continued HCC screening is suggested. Cirrhosis and splenomegaly. Tips in place. No drainable ascites identified in the abdomen. Other findings above. Dictated by: Blaise Cuevas M.D. on 02/15/2024 at 12:45 Approved by: Blaise Cuevas M.D. on 02/15/2024 at 12:50
== END ==
LOC: CT 09:37
PROVIDERS: Family Provider Family Medicine; PCP Physician Assistant; Referring Provider Physician Assistant; Visit Provider Physician Assistant
DX: K74.60 Unspecified cirrhosis of liver (principal); R18.8 Other ascites; I34.81 Nonrheumatic mitral (valve) annulus calcification; K46.9 Unspecified abdominal hernia without obstruction or gangrene; I51.7 Cardiomegaly; K82.8 Other specified diseases of gallbladder; R16.1 Splenomegaly, not elsewhere classified; K86.89 Other specified diseases of pancreas
CPT/HCPCS: 74170; Q9967

== ENCOUNTER 2025-03-12 16:18 | Inpatient (IN) | payer MEDICARE, OTHER, SELFPAY ==
[2025-03-12] VITALS (9 sets, daily range): BP systolic 124–151; BP diastolic 45–84; PULSE 68–84; RESP 17–21; TEMP 36.1–36.7; O2SAT 87–95; BMI 36.6; BMI 36.1
--- NOTE | 2025-03-12 16:37 | DI.RAD.S_ITS ---
PROCEDURE: XR CHEST 1V INDICATIONS: Shortness of breath TECHNIQUE: One view of the chest was acquired. COMPARISON: None. FINDINGS: Surgical changes and devices: Prosthetic heart valve. Left upper quadrant embolization coils. Right upper quadrant tips stent. Lungs and pleura: Small left pleural effusion with left basilar atelectasis. Right lung is clear. Mediastinum: Cardiac silhouette is enlarged. Bones and chest wall: No suspicious bony lesions. Overlying soft tissues appear unremarkable. IMPRESSION: Small left pleural effusion with left basilar atelectasis. Mild cardiomegaly. Approved by: Rodrigue Clifford M.D. on 03/12/2025 at 17:07
[2025-03-12 17:27] LABS: INR 1.8 (0.9-1.3); Prothrombin Time 19.7 SECONDS (9.4-12.5)
[2025-03-12 17:29] LABS: Add Manual Diff / Slide Review NO; Hematocrit 37.4 % (36-46); Hemoglobin 12.3 g/dL (12.0-16.0); Lymphocytes Absolute Auto 800 /uL (1100-4500); Mean Corpuscular HGB Conc 33.0 % (30-36); Mean Corpuscular Hemoglobin 31.7 PG (26-34); Mean Corpuscular Volume 96.3 fL (80-100); Platelet Count 84 X10^3/uL (150-400)
[2025-03-12 17:42] LABS: Alanine Aminotransferase 25 IU/L (<35); Albumin 3.1 g/dL (3.5-5.0); Albumin Globulin Ratio 0.9 (1.0-2.8); Alkaline Phosphatase 146 U/L (38-126); Blood Urea Nitrogen 15 mg/dL (7-17); Calcium 8.7 mg/dL (8.4-10.2); Carbon Dioxide 34 mmol/L (22-32); Chloride 100 mmol/L (98-107); Estimated Glomerular Filt Rate > 60 mL/min (>60); Globulin 3.3 g/dL (1.7-4.1); Glucose 112 mg/dL (70-99); HEMOLYSIS < 15 (0-50); Lactate (Lactic Acid) 1.5 mmol/L (0.7-2.1); Potassium 3.7 mmol/L (3.4-5.1); Sodium 137 mmol/L (137-145); Total Protein 6.4 g/dL (6.3-8.2)
[2025-03-12 17:54] LABS: NT-proBNP (BNP-Adult 18+) 326 pg/mL (<450)
[2025-03-12 18:25] LABS: Troponin I 0.270 ng/mL (0.01-0.034)
--- NOTE | 2025-03-12 18:52 | PC.NURSE ---
This [facility] assisted patient with ambulation trial. Patient walked about 60 feet. Oxygen Saturation level stayed at 93% and heart rate in the 80s. Once patient was back in bed O2 level dropped to 89% it it took several controlled deep breaths for patient's O2 to get back up to 92%. RN notified
--- NOTE | 2025-03-12 19:14 | PC.NURSE ---
The patient stated that she is only here due to her family wanting her to be here. She stated that if she is not having a heart attack then she wants to go home.
--- NOTE | 2025-03-12 19:17 | PC.NURSE ---
Patient ambulates to the restroom and then becomes hypoxic at 87% on RA. Once in bed and resting her 02 sat comes back up to 93%
[2025-03-12 19:34] LABS: Troponin I 0.251 ng/mL (0.01-0.034)
[2025-03-12 19:40] LABS: Coronavirus NL 63 Not Detected (Not Detect); SARS- CoV-2 Not Detected (Not Detecte)
--- NOTE | 2025-03-12 19:58 | DI.CT.S_ITS ---
PROCEDURE: CT ANGIO CHEST PE PROTOCOL INDICATIONS: dyspnea TECHNIQUE: After the administration of intravenous contrast, 2 mm thick sections acquired from the pulmonary apices to the posterior costophrenic angles. 3-dimensional maximum intensity projection (MIP) coronal and sagittal reformats were then acquired through the thorax. For radiation dose reduction, the following was used: automated exposure control, adjustment of mA and/or kV according to patient size. COMPARISON: [facility], CT, CT ABDOMEN WO/W CON, 02/15/2024, 9:51. [facility], CR, XR CHEST 1V, 03/12/2025, 16:45. FINDINGS: Image quality: Diagnostic. Pulmonary arteries: Pulmonary arteries are normal in size, and demonstrate no intraluminal filling defects to suggest central pulmonary embolism. Lower Neck: No enlarged lymph nodes. Thyroid: No thyroid nodules which require sonographic follow up, per consensus guidelines. Axillae: No enlarged lymph nodes. Chest Wall: Unremarkable. Bones: Unremarkable. Lungs and Pleura: Mild left effusion. Minimal superimposed opacities. Heart: Heart size is normal. No pericardial effusion. Thoracic Vessels: No aortic aneurysm. Mediastinum and Em: No enlarged lymph nodes. Esophagus: No wall thickening. Mild hiatal hernia. Upper Abdomen: TIPS stent. Surgical clips adjacent to the hilum. IMPRESSION: No pulmonary embolus. Mild left effusion with small superimposed opacity which may represent atelectasis versus pneumonia. Dictated by: Beatriz Stahl M.D. on 03/12/2025 at 20:27 Approved by: Beatriz Stahl M.D. on 03/12/2025 at 20:29
--- NOTE | 2025-03-12 21:16 | ED.SOB ---
HPI - SOB/Dyspnea General Chief Complaint: Shortness of Breath/Dyspnea Stated Complaint: SOB, was on oxygen but isnt currently Time Seen by Provider: 03/12/25 18:09 Source: patient and family Mode of arrival: Ambulatory Limitations: no limitations History of Present Illness HPI Narrative: Pleasant 84-year-old woman with a history of aortic valve replacement on Eliquis who also admits to a history of CHF but she does not know her EF for most recent echo comes to the ER because of increased orthopnea, lower extremity edema, and exertional dyspnea as well as some dyspnea at rest. She denies any recent chest pain, palpitations, diaphoresis, nausea, vomiting, cold or flu-like symptoms, fever, abdominal pain or any neurological symptoms such as changes in vision hearing speech swallowing or numbness tingling or weakness of any part of the body. She denies any recent loss of consciousness. She has no other concerns or complaints at this time. Related Data Home Medications ?Medication ?Instructions ?Recorded ?Confirmed pantoprazole 40 mg tablet,delayed 40 mg PO BID 05/14/19 03/03/25 release potassium chloride 10 mEq 10 meq PO DAILY 05/14/19 03/03/25 tablet,extended release cholecalciferol (vitamin D3) 25 25 mcg PO DAILY 02/09/21 03/03/25 mcg (1,000 unit) tablet (Vitamin D3) glipizide 5 mg tablet 5 mg PO DAILY 02/09/21 03/03/25 lactulose 10 gram/15 mL oral 20 g PO SEEINSTR 02/09/21 09/17/24 solution rifaximin 550 mg tablet (Xifaxan) 550 mg PO BID 02/09/21 03/03/25 spironolactone 25 mg tablet 50 mg PO DAILY 02/09/21 03/03/25 albuterol sulfate 90 mcg/actuation 2 puff inhalation Q4-6H PRN 09/17/24 03/03/25 aerosol inhaler apixaban 5 mg tablet 5 mg PO BID 09/17/24 03/03/25 aspirin 81 mg tablet,delayed 81 mg PO DAILY 09/17/24 03/03/25 release betamethasone valerate 0.1 % 1 applic topical DAILY PRN 09/17/24 03/03/25 topical cream diclofenac sodium 1 % topical gel 2 g topical QID 09/17/24 03/03/25 gabapentin 100 mg capsule 100 mg PO DAILY 09/17/24 03/03/25 ketoconazole 2 % topical cream 1 applic topical DAILY 09/17/24 03/03/25 multivitamin 1 tab PO DAILY 09/17/24 03/03/25 sitagliptin phosphate 100 mg 100 mg PO DAILY 09/17/24 03/03/25 tablet (Januvia) torsemide 40 mg tablet 40 mg PO BID 09/17/24 03/03/25 Allergies Allergy/AdvReac Type Severity Reaction Status Date / Time No Known Drug Allergies Allergy Verified 03/12/25 16:31 Patient History Medical History Anxiety Ascites Bruises easily Change in weight Chronic anemia Cirrhosis Congestive heart failure Diabetes Difficulty walking Esophageal and gastric varices Hard of hearing History of anemia Hyperlipidemia Hypertension Internal hemorrhoids Joint pain Memory loss Murmur, cardiac Obesity Pleural effusion Recurrent falls Splenomegaly Type 2 diabetes mellitus Weakness Surgical History H/O vein stripping History of bilateral knee arthroplasty History of esophagogastroduodenoscopy (EGD) History of tonsillectomy S/P TIPS (transjugular intrahepatic portosystemic shunt) Social History household members: family and none Smoking Status: Former smoker alcohol intake: never Smoking Status: Former smoker Exam Initial Vital Signs Initial Vital Signs: Vital Signs Temperature 98.0 F 03/12/25 16:31 Pulse Rate 68 03/12/25 16:31 Respiratory Rate 18 03/12/25 16:31 Blood Pressure 132/62 03/12/25 16:31 Pulse Oximetry 95 03/12/25 16:31 Oxygen Delivery Method Room Air 03/12/25 16:31 Const General: No healthy appearing, No acute distress, No in distress and frail appearing Limitations: mental status not altered [facility] Head: normal to inspection, normocephalic and atraumatic Eyes General: Yes appearance normal, both eyes and all related structures Neck Neck: normal visual inspection and No tender Resp Effort & Inspection: normal respiratory effort Auscultation: clear to auscultation bilaterally Cardio Rate: regular rate Rhythm: regular rhythm Heart Sounds: S1 normal and S2 normal GI Palpation: soft General: No CVA tenderness Skin General: no rashes or lesions noted Neuro General: patient alert, patient awake and patient oriented x3 Course Course Course Narrative: Patient was seen and examined by myself when I arrived in the ER. Her presentation was consistent with CHF exacerbation with increased orthopnea, lower extremity edema, exertional dyspnea, and dyspnea at rest. However, the patient's BNP was within normal limits. Additionally, her troponin was elevated on the initial check despite no symptoms of acute coronary syndrome, therefore at that point I immediately ordered a recheck of the troponin which was down trending already. Given the absence of acute coronary symptoms and downtrending troponin I believe that the troponin Huong is likely secondary to cardiac stress from possible CHF exacerbation. I then discussed the case with the hospitalist on-call Dr. Waddell who accepted the patient for admission and also asked that we order a stat CTA of the chest to rule out PE and this was done. The results were still pending at the time of admission. The patient was admitted in stable hemodynamic condition. Additionally, the patient was desaturating with ambulation what her oxygen saturation was fine on room air at rest. Orders Ordered: ED Orders 03/12/25 16:37 XR chest 1V Stat EKG-12 Lead Stat Measure peak expiratory flow STAT RT Consult Eval and Treat STAT 03/12/25 17:08 Complete Blood Count AUTO DIFF Stat Comprehensive Metabolic Panel Stat Lactate (Lactic Acid) Stat NT-proBNP (BNP-Adult 18+) Stat Prothrombin Time INR Stat Troponin I Stat 03/12/25 18:41 Respiratory Panel (Film Array) Stat 03/12/25 18:53 Trop I [Troponin I] Stat 03/12/25 19:58 CT angio chest PE protocol Stat Discontinued Medications Aspirin (Aspirin 81 Mg Chew Tab) 324 mg PO NOW ONE Stop: 03/12/25 18:39 Vital Signs Vital signs: Vital Signs - 8 hr 03/12/25 16:31 03/12/25 18:13 03/12/25 18:14 Temperature 98.0 F Pulse Rate 68 74 Respiratory Rate 18 Blood Pressure 132/62 143/84 H Pulse Oximetry 95 94 Oxygen Delivery Method Room Air 03/12/25 18:14 03/12/25 18:30 03/12/25 18:31 Temperature Pulse Rate 71 73 73 Respiratory Rate Blood Pressure Pulse Oximetry 95 94 94 Oxygen Delivery Method 03/12/25 18:31 03/12/25 18:51 03/12/25 19:10 Temperature Pulse Rate 84 83 Respiratory Rate 21 Blood Pressure 124/78 Pulse Oximetry 93 87 L Oxygen Delivery Method 03/12/25 19:12 03/12/25 19:12 Temperature Pulse Rate 80 Respiratory Rate 17 Blood Pressure 151/62 H Pulse Oximetry 91 Oxygen Delivery Method MDM - SOB/Dyspnea Differential Diagnosis Differential diagnosis: Likely acute exacerbation of chronic obstructive airways disease, congestive heart failure, community acquired pneumonia, pulmonary embolism and other (UT, ACS, angina) Lab Data 03/12/25 17:08 03/12/25 17:08 Labs: Lab Results 03/12/25 03/12/25 03/12/25 Range/Units 17:08 18:41 18:53 WBC 6.2 (4.5-11.0) X10^3/uL RBC 3.89 L (4.0-5.2) X10^6/uL Hgb 12.3 (12.0-16.0) g/dL Hct 37.4 (36-46) % MCV 96.3 (80-100) fL MCH 31.7 (26-34) PG MCHC 33.0 (30-36) % RDW 15.5 H (11.6-14.8) % Plt Count 84 L (150-400) X10^3/uL Neut % (Auto) 73.8 (50-75) % Lymph % (Auto) 12.9 L (25-40) % [place] % (Auto) 9.9 (3-14) % Eos % (Auto) 2.7 (2-4) % Baso % (Auto) 0.7 (0-2) % Neut # (Auto) 4600 (0730-2941) /uL Lymph # (Auto) 800 L (4963-8712) /uL [place] # (Auto) 600 (0-900) /uL Eos # (Auto) 200 (0-450) /uL Baso # (Auto) 0 (0-100) /uL PT 19.7 H (9.4-12.5) SECONDS INR 1.8 H (0.9-1.3) Sodium 137 (137-145) mmol/L Potassium 3.7 (3.4-5.1) mmol/L Chloride 100 (98-107) mmol/L Carbon Dioxide 34 H (22-32) mmol/L BUN 15 (7-17) mg/dL Creatinine 0.86 (0.52-1.04) mg/dL Estimated GFR > 60 (>60) mL/min BUN/Creatinine Ratio 17.4 (6-22) Glucose 112 H (70-99) mg/dL Lactate 1.5 (0.7-2.1) mmol/L Calcium 8.7 (8.4-10.2) mg/dL Total Bilirubin 2.3 H (0.2-1.3) mg/dL AST 53 H (14-36) IU/L ALT 25 (<35) IU/L Alkaline Phosphatase 146 H (38-126) U/L Troponin I 0.270 H* 0.251 H* (0.01-0.034) ng/mL NT-Pro-B Natriuret Pep 326 (<450) pg/mL Total Protein 6.4 (6.3-8.2) g/dL Albumin 3.1 L (3.5-5.0) g/dL Globulin 3.3 (1.7-4.1) g/dL Albumin/Globulin Ratio 0.9 L (1.0-2.8) Chlamy pneumoniae PCR Not detected (Not Detect) Adenovirus (PCR) Not detected (Not Detect) B. pertussis DNA (PCR) Not detected (Not Detect) B.parapertussis DNA PCR Not detected (Not Detecte) Coronavirus OC43 (PCR) Not detected (Not Detect) Coronavirus HKU1 (PCR) Not detected (Not Detect) Coronavirus 229E (PCR) Not detected (Not Detect) SARS-CoV-2 (PCR) Not detected (Not Detecte) Coronavirus NL63 (PCR) Not detected (Not Detect) Human Metapneumovir PCR Not detected (Not Detect) Influenza Type A (PCR) Not detected (Not Detect) Influenza Type B (PCR) Not detected (Not Detect) M. pneumoniae (PCR) Not detected (Not Detect) Parainfluenza 1 (PCR) Not detected (Not Detect) Parainfluenza 2 (PCR) Not detected (Not Detect) Parainfluenza 3 (PCR) Not detected (Not Detect) Parainfluenza 4 (PCR) Not detected (Not Detect) RSV (PCR) Not detected (Not Detect) Entero/Rhino (PCR) Not detected (Not Detect) ECG Data Interpretation: Sinus with PVCs, rate 69 Discharge Plan Departure Patient Disposition: Admitted As Inpatient Clinical Impression: Acute respiratory failure with hypoxemia, Dyspnea due to congestive heart failure Admit Date/Time: 03/12/25 20:12 Admit Provider: Ronaldo Waddell
[2025-03-12] MEDS: AZITHROMYCIN 500 MG in DEXTROSE 5% IN WATER 250 ML 250 MG IV (23:12)
[2025-03-13] VITALS (7 sets, daily range): BP systolic 113–132; BP diastolic 39–49; PULSE 74–87; RESP 16–20; TEMP 36–36.6; O2SAT 89–98
[2025-03-13] MEDS: SPIRONOLACTONE 25 MG TABLET 50 MG PO ×3 (00:27→22:10)
[2025-03-13] MEDS: LACTULOSE 20 GM/30 ML SOLUTION PO ×5 (00:28→22:10)
[2025-03-13] MEDS: APIXABAN 5 MG TABLET PO ×3 (00:28→22:10)
[2025-03-13] MEDS: PANTOPRAZOLE DR 40 MG TABLET PO ×3 (00:28→22:09)
[2025-03-13] MEDS: FUROSEMIDE 40 MG/4 ML VIAL IV (00:31)
--- NOTE | 2025-03-13 06:53 | PM.HP.1 ---
History of Present Illness History of Present Illness Date Patient Seen: 03/12/25 Time Patient Seen: 23:22 Chief complaint: SOB, was on oxygen but isnt currently Narrative: 84-year-old female with past medical history of CHF, aortic valve replacement on Eliquis, GERD, cirrhosis on lactulose, and [id number] diabetes presents with shortness of breath. Per the patient's report, over the last few days, the patient has had increasing lower extremity with orthopnea. The patient especially has shortness of breath with exertion. The patient however denies any recent coughing, fever, chills, chest pain or palpitation. The patient states that she has been compliant with taking her torsemide at home. In our emergency room, the patient was hemodynamically stable. Labs were relatively benign with BNP that is not elevated. Chest x-ray however shows signs of may be some pleural effusion. CT angio of the chest shows no signs of PE but did show atelectasis versus signs of pneumonia. There is again signs of left pleural effusion. The patient did require 2 L of oxygen while ambulating but was 90% at rest. [facility] Medical History Anxiety Ascites Bruises easily Change in weight Chronic anemia Cirrhosis Congestive heart failure Diabetes Difficulty walking Esophageal and gastric varices Hard of hearing History of anemia Hyperlipidemia Hypertension Internal hemorrhoids Joint pain Memory loss Murmur, cardiac Obesity Pleural effusion Recurrent falls Splenomegaly Type 2 diabetes mellitus Weakness Surgical History H/O vein stripping History of bilateral knee arthroplasty History of esophagogastroduodenoscopy (EGD) History of tonsillectomy S/P TIPS (transjugular intrahepatic portosystemic shunt) Social History household members: none Smoking Status: Former smoker alcohol intake: never Meds Home Medications and Allergies Home Medications ?Medication ?Instructions ?Recorded ?Confirmed ?Type pantoprazole 40 mg tablet,delayed 40 mg PO BID 05/14/19 03/12/25 History release potassium chloride 10 mEq 30 meq PO DAILY 05/14/19 03/12/25 History tablet,extended release cholecalciferol (vitamin D3) 25 25 mcg PO DAILY 02/09/21 03/12/25 History mcg (1,000 unit) tablet (Vitamin D3) glipizide 5 mg tablet 5 mg PO BID 02/09/21 03/12/25 History lactulose 10 gram/15 mL oral 20 g PO QID 02/09/21 03/12/25 History solution rifaximin 550 mg tablet (Xifaxan) 550 mg PO BID 02/09/21 03/12/25 History spironolactone 25 mg tablet 50 mg PO BID 02/09/21 03/12/25 History albuterol sulfate 90 mcg/actuation 2 puff inhalation Q4-6H PRN 09/17/24 03/12/25 History aerosol inhaler shortness of breath or wheezing apixaban 5 mg tablet 5 mg PO BID 09/17/24 03/12/25 History aspirin 81 mg tablet,delayed 81 mg PO DAILY 09/17/24 03/12/25 History release betamethasone valerate 0.1 % 1 applic topical DAILY PRN itching 09/17/24 03/12/25 History topical cream ketoconazole 2 % topical cream 1 applic topical DAILY 09/17/24 03/12/25 History multivitamin 1 tab PO DAILY 09/17/24 03/12/25 History sitagliptin phosphate 100 mg 100 mg PO DAILY 09/17/24 03/12/25 History tablet (Januvia) torsemide 40 mg tablet 60 mg PO DAILY 09/17/24 03/12/25 History blood sugar diagnostic (FreeStyle 03/12/25 03/12/25 History Lite Strips) lancets 28 gauge (FreeStyle 03/12/25 03/12/25 History Lancets) Allergies Allergy/AdvReac Type Severity Reaction Status Date / Time No Known Drug Allergies Allergy Verified 03/12/25 16:31 Review of Systems Review of Systems ROS: Yes All systems reviewed with the patient and are negative except as otherwise documented Exam Vital Signs (past 8 hours): - 03/13/25 04:00 Temperature 97.8 F Pulse Rate 74 Respiratory Rate 16 Blood Pressure 125/45 L Pulse Oximetry 91 Oxygen Flow Rate 0 Oxygen Delivery Method Room Air Oxygen Flow Rate 0 Narrative Exam Narrative: Physical Exam: GENERAL: The patient is not in any acute distressed. Awake and alert. HEENT: Nonicteric sclerae, PERRLA, EOMI. Oropharynx clear. Moist mucous membranes. Conjunctivae appear well perfused. HEART: Regular rate and rhythm without murmurs. 1+ lower extremities edema. LUNGS: Clear to auscultation bilaterally. No wheezing, crackles or rhonchi ABDOMEN: Soft, positive bowel sounds, nontender. SKIN: No rash, no excessive bruising, petechiae, or purpura. NEUROLOGIC: AxO x 3. Cranial nerves II-XII intact without motor/sensory deficit. Objective Labs 03/12/25 17:08 03/12/25 17:08 Labs: Laboratory Results - last 24 hr 03/12/25 03/12/25 03/12/25 17:08 18:41 18:53 WBC 6.2 RBC 3.89 L Hgb 12.3 Hct 37.4 MCV 96.3 MCH 31.7 MCHC 33.0 RDW 15.5 H Plt Count 84 L Neut % (Auto) 73.8 Lymph % (Auto) 12.9 L [place] % (Auto) 9.9 Eos % (Auto) 2.7 Baso % (Auto) 0.7 Neut # (Auto) 4600 Lymph # (Auto) 800 L [place] # (Auto) 600 Eos # (Auto) 200 Baso # (Auto) 0 PT 19.7 H INR 1.8 H Sodium 137 Potassium 3.7 Chloride 100 Carbon Dioxide 34 H BUN 15 Creatinine 0.86 Estimated GFR > 60 BUN/Creatinine Ratio 17.4 Glucose 112 H Lactate 1.5 Calcium 8.7 Total Bilirubin 2.3 H AST 53 H ALT 25 Alkaline Phosphatase 146 H Troponin I 0.270 H* 0.251 H* NT-Pro-B Natriuret Pep 326 Total Protein 6.4 Albumin 3.1 L Globulin 3.3 Albumin/Globulin Ratio 0.9 L Chlamy pneumoniae PCR Not detected Adenovirus (PCR) Not detected B. pertussis DNA (PCR) Not detected B.parapertussis DNA PCR Not detected Coronavirus OC43 (PCR) Not detected Coronavirus HKU1 (PCR) Not detected Coronavirus 229E (PCR) Not detected SARS-CoV-2 (PCR) Not detected Coronavirus NL63 (PCR) Not detected Human Metapneumovir PCR Not detected Influenza Type A (PCR) Not detected Influenza Type B (PCR) Not detected M. pneumoniae (PCR) Not detected Parainfluenza 1 (PCR) Not detected Parainfluenza 2 (PCR) Not detected Parainfluenza 3 (PCR) Not detected Parainfluenza 4 (PCR) Not detected RSV (PCR) Not detected Entero/Rhino (PCR) Not detected Assessment & Plan Assessment & Plan narrative: Community-acquired pneumonia. Admit the patient to medical telemetry as inpatient. Again the patient did require some oxygen onto 2 L. Continue. IV ceftriaxone and azithromycin. Of note the patient is not septic at this time. Possible COPD exacerbation. The patient is on inhalers at home. 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 Will empirically start steroids and DuoNebs. History of CHF. Unclear if there is any sign of acute on chronic heart failure. BNP however was not elevated. CT angio of the chest shows small pleural effusion but no signs of pulmonary congestion. Patient did receive Lasix 40 mg IV x 1. Resume debra home oral torsemide in the morning. Continue strict I's and O's and daily weight. Acute respiratory failure with hypoxemia. Mild. Patient on 1 to 2 L with exertion only. Likely due to above. Treat as above and wean down oxygen as able. History of aortic valve replacement. Resume home Eliquis. Dxb-ackjwac-kymriwpvi diabetes. Monitor glucose and will give subcu insulin as needed. DVT prophylaxis Eliquis. CODE STATUS DNR/DNI. Disposition likely home in 2 days. - As the provider of this telehealth evaluation, requested by the patient's evaluating physician, I attest that I introduced myself to the patient, provided my credentials and determined that telemedicine via a real-time, 2 way interactive audio and video platform is an appropriate and effective means of providing this service. - I reviewed the patient's chart and had a discussion with the member of the patient's treatment team. - The patient and I mutually agreed with continuation of this evaluation via telemedicine. The patient consented for the telemedicine evaluation. - This virtual encounter was taken place from [place] by Dr. Ronaldo Waddell. The patient was evaluated at [facility]. The encounter was approximately 35 minutes. The nurse was present during the entire time of the encounter and was able to move the stethoscope in appropriate directions. Time-Based Coding :: [TOTAL MINUTES] spent with patient and on the chart (including review of chart, obtaining history, exam, reviewing outside data, placing orders, documenting exam and treatment plan, and counseling patient) on [DATE]. Quality VTE Deep Vein Thrombosis/Pulmonary Embolism Present on Admission: No
[2025-03-13 07:06] LABS: Add Manual Diff / Slide Review NO; Hematocrit 38.8 % (36-46); Hemoglobin 12.9 g/dL (12.0-16.0); Lymphocytes Absolute Auto 300 /uL (1100-4500); Mean Corpuscular HGB Conc 33.2 % (30-36); Mean Corpuscular Hemoglobin 31.6 PG (26-34); Mean Corpuscular Volume 95.0 fL (80-100); Platelet Count 60 X10^3/uL (150-400)
[2025-03-13 07:07] LABS: Blood Urea Nitrogen 15 mg/dL (7-17); Calcium 8.6 mg/dL (8.4-10.2); Carbon Dioxide 30 mmol/L (22-32); Chloride 101 mmol/L (98-107); Estimated Glomerular Filt Rate > 60 mL/min (>60); Glucose 178 mg/dL (70-99); HEMOLYSIS < 15 (0-50); Potassium 3.6 mmol/L (3.4-5.1); Sodium 136 mmol/L (137-145)
[2025-03-13 07:12] LABS: Cholesterol 194 mg/dL (140-199); HDL Cholesterol 52 mg/dL (40-60); Triglycerides 80 mg/dL (35-150)
--- NOTE | 2025-03-13 07:35 | PM.PN.1 ---
Subjective Subjective Interval history: From H&P: 84-year-old female with past medical history of CHF, aortic valve replacement on Eliquis, GERD, cirrhosis on lactulose, and [id number] diabetes presents with shortness of breath. Per the patient's report, over the last few days, the patient has had increasing lower extremity with orthopnea. The patient especially has shortness of breath with exertion. The patient however denies any recent coughing, fever, chills, chest pain or palpitation. The patient states that she has been compliant with taking her torsemide at home. In our emergency room, the patient was hemodynamically stable. Labs were relatively benign with BNP that is not elevated. Chest x-ray however shows signs of may be some pleural effusion. CT angio of the chest shows no signs of PE but did show atelectasis versus signs of pneumonia. There is again signs of left pleural effusion. The patient did require 2 L of oxygen while ambulating but was 90% at rest. She notes a history of heart failure, and increased edema for 3 weeks following dietary indiscretion with increased salt load. Specifically, she has been eating Romanian fries. She was followed by Cardiology, Dr. Varela at [facility]. She was history of a TAVR. Her daughter disagreed with a mentioned diagnosis of COPD last night, and reviewing her biochemistry specialist's note she was chronic bronchitis. S: She feels much better today, no dyspnea. Her leg edema is improved after diuresis. Exam Vital Signs (past 8 hours): - 03/13/25 04:00 Temperature 97.8 F Pulse Rate 74 Respiratory Rate 16 Blood Pressure 125/45 L Pulse Oximetry 91 Oxygen Flow Rate 0 Oxygen Delivery Method Room Air Oxygen Flow Rate 0 Narrative Exam Narrative: NAD, alert and oriented. Fluent speech. Lungs are clear, normal rate and effort. Heart is regular, no murmur gallop or rub. Abdomen is soft, non distended. Extremities with 1+ edema. Objective Imaging CT scan - chest: Radiologist's impression: No pulmonary embolus. Mild left effusion with small superimposed opacity which may represent atelectasis versus pneumonia. Chest x-ray: Radiologist's impression: Small left pleural effusion with left basilar atelectasis. Mild cardiomegaly. Labs 03/13/25 05:30 03/13/25 05:30 Labs: Laboratory Results - last 24 hr 03/12/25 03/12/25 03/12/25 17:08 18:41 18:53 WBC 6.2 RBC 3.89 L Hgb 12.3 Hct 37.4 MCV 96.3 MCH 31.7 MCHC 33.0 RDW 15.5 H Plt Count 84 L Neut % (Auto) 73.8 Lymph % (Auto) 12.9 L [place] % (Auto) 9.9 Eos % (Auto) 2.7 Baso % (Auto) 0.7 Neut # (Auto) 4600 Lymph # (Auto) 800 L [place] # (Auto) 600 Eos # (Auto) 200 Baso # (Auto) 0 PT 19.7 H INR 1.8 H Sodium 137 Potassium 3.7 Chloride 100 Carbon Dioxide 34 H BUN 15 Creatinine 0.86 Estimated GFR > 60 BUN/Creatinine Ratio 17.4 Glucose 112 H Lactate 1.5 Calcium 8.7 Total Bilirubin 2.3 H AST 53 H ALT 25 Alkaline Phosphatase 146 H Troponin I 0.270 H* 0.251 H* NT-Pro-B Natriuret Pep 326 Total Protein 6.4 Albumin 3.1 L Globulin 3.3 Albumin/Globulin Ratio 0.9 L Triglycerides Cholesterol LDL Cholesterol, Calc HDL Cholesterol Chlamy pneumoniae PCR Not detected Adenovirus (PCR) Not detected B. pertussis DNA (PCR) Not detected B.parapertussis DNA PCR Not detected Coronavirus OC43 (PCR) Not detected Coronavirus HKU1 (PCR) Not detected Coronavirus 229E (PCR) Not detected SARS-CoV-2 (PCR) Not detected Coronavirus NL63 (PCR) Not detected Human Metapneumovir PCR Not detected Influenza Type A (PCR) Not detected Influenza Type B (PCR) Not detected M. pneumoniae (PCR) Not detected Parainfluenza 1 (PCR) Not detected Parainfluenza 2 (PCR) Not detected Parainfluenza 3 (PCR) Not detected Parainfluenza 4 (PCR) Not detected RSV (PCR) Not detected Entero/Rhino (PCR) Not detected 03/13/25 05:30 WBC 4.0 L RBC 4.09 Hgb 12.9 Hct 38.8 MCV 95.0 MCH 31.6 MCHC 33.2 RDW 15.3 H Plt Count 60 L Neut % (Auto) 91.1 H Lymph % (Auto) 7.7 L [place] % (Auto) 0.9 L Eos % (Auto) 0.1 L Baso % (Auto) 0.2 Neut # (Auto) 3700 Lymph # (Auto) 300 L [place] # (Auto) 0 Eos # (Auto) 0 Baso # (Auto) 0 PT INR Sodium 136 L Potassium 3.6 Chloride 101 Carbon Dioxide 30 BUN 15 Creatinine 0.63 Estimated GFR > 60 BUN/Creatinine Ratio 23.8 H Glucose 178 H Lactate Calcium 8.6 Total Bilirubin AST ALT Alkaline Phosphatase Troponin I NT-Pro-B Natriuret Pep Total Protein Albumin Globulin Albumin/Globulin Ratio Triglycerides 80 Cholesterol 194 LDL Cholesterol, Calc 126 H HDL Cholesterol 52 Chlamy pneumoniae PCR Adenovirus (PCR) B. pertussis DNA (PCR) B.parapertussis DNA PCR Coronavirus OC43 (PCR) Coronavirus HKU1 (PCR) Coronavirus 229E (PCR) SARS-CoV-2 (PCR) Coronavirus NL63 (PCR) Human Metapneumovir PCR Influenza Type A (PCR) Influenza Type B (PCR) M. pneumoniae (PCR) Parainfluenza 1 (PCR) Parainfluenza 2 (PCR) Parainfluenza 3 (PCR) Parainfluenza 4 (PCR) RSV (PCR) Entero/Rhino (PCR) [facility] Medical History Anxiety Change in weight Bruises easily History of anemia Difficulty walking Weakness Memory loss Hard of hearing Congestive heart failure Chronic anemia Esophageal and gastric varices Obesity Hyperlipidemia Hypertension Type 2 diabetes mellitus Internal hemorrhoids Pleural effusion Splenomegaly Joint pain Recurrent falls Murmur, cardiac Ascites Cirrhosis Diabetes Surgical History S/P TIPS (transjugular intrahepatic portosystemic shunt) History of esophagogastroduodenoscopy (EGD) History of bilateral knee arthroplasty H/O vein stripping History of tonsillectomy Social History household members: none Smoking Status: Former smoker alcohol intake: never Assessment & Plan Assessment & Plan narrative: 1. Acute on chronic heart failure, unknown level of function. No echo available. 2. Acute respiratory failure with hypoxemia. 3. History of aortic valve replacement. Resume home Eliquis. 4. Yva-vppmnah-scbpfmrup diabetes. 5. Demand ischemia, troponins are mildly elevated. Active PLAN: -discontinue antibiotics -continue diuresis -wean oxygen as able -echo to assess LV function DVT prophylaxis Eliquis. CODE STATUS DNR/DNI. Time-Based Coding :: [TOTAL MINUTES] spent with patient and on the chart (including review of chart, obtaining history, exam, reviewing outside data, placing orders, documenting exam and treatment plan, and counseling patient) on [DATE]. Quality VTE Deep Vein Thrombosis/Pulmonary Embolism Present on Admission: No
[2025-03-13] MEDS: ALBUTEROL/IPRATROPIUM 3 ML AMPUL INH ×3 (07:53→20:00)
[2025-03-13] MEDS: POTASSIUM CHLORIDE 10 MEQ TAB 30 MEQ PO (08:28)
[2025-03-13] MEDS: CHOLECALCIFEROL (VITAMIN D3) 1,000 UNIT TABLET 1000 UNIT PO (08:29)
[2025-03-13] MEDS: ASPIRIN EC 81 MG TABLET PO (08:29)
[2025-03-13] MEDS: MULTIVITAMIN 1 TABLET 1 TAB PO (08:29)
[2025-03-13] MEDS: TORSEMIDE 10 MG TABLET 60 MG PO (08:32)
--- NOTE | 2025-03-13 10:05 | PT.IIE ---
Surgical History (Last Reviewed 03/13/25 @ 07:37 by Joseph Charles MD) H/O vein stripping History of bilateral knee arthroplasty History of esophagogastroduodenoscopy (EGD) History of tonsillectomy S/P TIPS (transjugular intrahepatic portosystemic shunt) Medical History (Last Reviewed 03/13/25 @ 07:37 by Joseph Charles MD) Anxiety Ascites Bruises easily Change in weight Chronic anemia Cirrhosis Congestive heart failure Diabetes Difficulty walking Esophageal and gastric varices Hard of hearing History of anemia Hyperlipidemia Hypertension Internal hemorrhoids Joint pain Memory loss Murmur, cardiac Obesity Pleural effusion Recurrent falls Splenomegaly Type 2 diabetes mellitus Weakness Physical Therapy Inpatient Evaluation/Re-Eval M1 PT/OT-IP Prior Functional Status Start: 03/13/25 12:50 Freq: NEEDED Status: Active Protocol: Document 03/13/25 10:05 AB (Rec: 03/13/25 13:07 AB [id number]) Medical Review Prior Functional Status Medical History Yes Reviewed Communication able to make needs known Mobility and Gait pt stated that she was modified independent with all mobilities and ambulation without AD but occasionally uses either a FWW or a SPC depending on how steady she feels; h/o falls Social History Household Members none Living Arrangements House Number of Floors ( One Floor Floors) Number of Stairs To no steps to enter Enter/Railing? pt lives in a senior care: [facility] Home Environment Tub/Shower Home Equipment Front Wheel Walker,Straight Cane,Raised Toilet Seat Without Armrests,Tub Transfer Bench,Hand Held Shower, Grab Bars In Shower M2 PT-IP Current Condition Start: 03/13/25 12:50 Freq: NEEDED Status: Active Protocol: Document 03/13/25 10:05 AB (Rec: 03/13/25 13:07 AB [id number]) Physical Therapy Current Condition Current Condition Evaluation Date 03/13/25 Treatment Diagnosis PNA; COPD; CHF; difficulty in walking Onset Date 03/12/25 M3 PT-IP Subjective Start: 03/13/25 12:50 Freq: NEEDED Status: Active Protocol: Document 03/13/25 10:05 AB (Rec: 03/13/25 13:07 AB [id number]) Subjective Physical Therapy Visit Type Type Initial Evaluation Visit Start Time 10:05 Visit Stop Time 11:10 Number of AUDIO TAPE LIBRARIAN Visits 0 Physical Therapy Visit Comments Patient Comments agreeable to do PT M4 PT-IP Mobility and Gait Start: 03/13/25 12:50 Freq: NEEDED Status: Active Protocol: Document 03/13/25 10:05 AB (Rec: 03/13/25 13:07 AB [id number]) PT-Bed Mobility Assessment Supine to Sit Supine to Sit Standby Assistance Sit to Supine Sit to Supine Standby Assistance PT-Transfer Assessment Sit to and From Stand Sit to and from Standby Assistance,1 Person Assistance,Use of Upper Stand Extremities Equipment Transfer Assistive None,Gait Belt Device Orthotic/Prosthetic No Devices or Brace: Transfers Transfer Destination Chair Transfer Technique ambulated Transfer Ability Level of Assist Contact Guard Assistance,1 Person Assistance,Use of Upper Extremities Comments Mobility Comments pt walking in the hallway with NAC. pt presents with unsteady antalgic gait. (+) SOB. pt sat on EOB. O2 sat at RA: 94%. pt agreed to do PT. obtained PLOF and home set up. Pt's daughter arrived. pt and daughter with several questions and PT addressed questions as much as possible. O2 sat at RA restin-91%. pt completed sit<>supine SBA. O2 sat checked: 88%. cued pt for PLB. O2 sat increased to 94% in >5 sec. pt completed sit to stand from EOB SBA and ambulated in room without AD CGA. presents with unsteady antalgic gait. (+) SOB. pt sat on the chair. pt stated that she occasionally uses a FWW/ SPC when feeling unsteady at home but prefers to use a 4WW. Assessed ambulation using 4WW. educated pt on use of 4WW. pt completed sit to stand SBA and ambulated in room using 4WW ~ 35 ft SBA to occasional cues for safety. pt sat on 4WW to rest and was able to lock brakes prior to sitting but needs cues for safety and use of 4WW for sit to stand. pt ambulated to chair using 4WW SBA. O2 sat at RA during ambulation: 94%. pt agreed to stay up on the chair. positioned pt on the chair. call light and table placed within reach. informed pt and daughter regarding more training with use of 4WW. Gait Assessment Gait Gait Assistance Standby Assistance,Contact Guard Assist Required: Distance (Feet) 40 Able to Maintain Yes Weight Bearing Status During Gait Assistive Devices Assistive Device None,Gait Belt,4 Wheeled Walker Orthotic/Prosthetic No Devices or Brace: Gait Deviations General Gait Pattern Antalgic,Decreased Stride Length,Decreased Feet Clearance Factors Limiting Gait Function Factors Limiting Decreased Activity Tolerance,Decreased Strength,Poor Gait Function Balance,Poor Safety Awareness,Respiratory Distress PT-Balance Assessment Sitting Balance and Reactions Static Sitting Normal Balance Ability Dynamic Sitting Good Balance Ability Standing Balance and Reactions Static Standing Fair Balance Ability Dynamic Standing Fair Balance Ability Device Used 4WW M5 PT-IP Objective Assessments Start: 03/13/25 12:50 Freq: NEEDED Status: Active Protocol: Document 03/13/25 10:05 AB (Rec: 03/13/25 13:07 AB [id number]) Orientation Orientation/Cognition Level of Alertness Alert Orientation Name,Place,Situation Safety Awareness Decreased Safety Awareness Memory Description Short Term Impaired Gross Range of Motion Lower Extremity ROM Assessment Within Functional Limits Strength Lower Extremity Strength Assessment Within Functional Limits Coordination Assessment Gross Coordination Gross Coordination WNL Muscle Tone Muscle Tone WNL Yes M6 PT-IP Treatment Start: 03/13/25 12:50 Freq: NEEDED Status: Active Protocol: Document 03/13/25 10:05 AB (Rec: 03/13/25 13:07 AB [id number]) Physical Therapy Treatment Education Education Provided Weight Bearing Status,Safety M7 PT-IP Assessment and Plan Start: 03/13/25 12:50 Freq: NEEDED Status: Active Protocol: Document 03/13/25 10:05 AB (Rec: 03/13/25 13:07 AB [id number]) PT Summary Assessment and Plan Potential Rehabilitation Fair Potential Status of Condition Evolving at Evaluation Summary Impairments Pain,ROM,Strength,Balance,Coordination,Sensation,Tone, Cognition,Bed Mobility,Transfers,Gait,Activity Tolerance Assessment Summary pt is an 84 y/o F who is admitted for PNA, COPD and CHF . pt requiring SBA with ambulation using 4WW and CGA without AD. (+) SOB during ambulation but O2 sat: 94%. pt lives alone and will need assistance at home for safety. pt also will benefit from HHPT for improving overall strength and mobility and further 4WW training. Goals Bed Mobility Goal Independent Transfer Goal Independent,Four Wheeled Walker Gait Goal Independent,Four Wheel Walker Gait Distance 150 Days to Meet Goals 10 Frequency of Treatment Frequency Of Once a Day Treatment Treatment Plan Physical Therapy Bed Mobility Training,Transfer Training,Gait Training, Treatment Plan Therapeutic Exercise,Balance Retraining,Discharge Planning,Hot or Cold Pack,Neuromuscular Re-ed, Coordination Retraining Other ambulation using 4WW Recommendations and Next Treatment Focus Precautions Other Precautions O2 sat; falls Recommendations To Nursing Amount of Assist 1 Person Assist Needed Discharge Recommendations PT Discharge Home with Assistance,Home Health Recommendations Transportation Needs Private Vehicle at Discharge - PT assist 1
[2025-03-13] MEDS: RIFAXIMIN 200 MG TABLET 400 MG PO ×3 (10:22→22:10)
--- NOTE | 2025-03-13 11:45 | DI.ECHO.S_ITS ---
[place] [facility]---------+ [facility] : : [id number] : [address] : : [id number] : : Phone: [phone] Echocardiogram Report + + :Name: DELILAH THOMPSON Study Date: 03/13/2025 Height: 66 in : :[facility] ReadingLocation: Weight: 223 lb : : Gender: Female BSA: 2.1 m2 : :: 1940 Age: 84 yrs BP: 121/64 mmHg: :Reason For Study: CHF : :Ordering Physician: SHAHRZAD, : :NEELAM Anglin Performed By: Luke Colon : :Referring: NEELAM MARKHAM : + + Interpretation Summary The study quality was technically difficult. The ejection fraction is estimated to be 55-60%. Diastolic function could not be accurately assessed due to confounding valvular disease. The left atrium is severely dilated. The right ventricle is normal in size and function. The right atrium is moderately dilated. There is moderate mitral stenosis. 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 Pulmonary artery pressures cannot be estimated because of the lack of a measurable TR jet velocity but the IVC suggests a CVP of around 3 mmHg. Procedure: A two-dimensional transthoracic echocardiogram with color flow and Doppler was performed. A contrast injection of Definity was performed to improve assessment of LV function. The study quality was technically difficult. There is no prior echocardiogram noted for this patient. The patient was in normal sinus rhythm during the exam. The patient had frequent PACs during the exam. Left Ventricle: The left ventricle is normal in size. There is normal left ventricular wall thickness. There is no ventricular septal defect visualized. The ejection fraction is estimated to be 55-60%. Diastolic function could not be accurately assessed due to confounding valvular disease. Right Ventricle: The right ventricle is normal in size and function. Atria: The left atrium is severely dilated. The right atrium is moderately dilated. There is no Doppler evidence for an interatrial shunt. Mitral Valve: There is severe mitral annular calcification. The mitral valve leaflets appear moderately thickened. The mitral valve leaflets are mildly calcified. There is moderate mitral stenosis. The mitral valve mean gradient is 7.3 mmHg. There is trace mitral regurgitation. Aortic Valve: There is a bioprosthetic aortic valve. The peak aortic velocity is 3.4 m/sec. The aortic valve mean gradient is 27 mmHg. No aortic regurgitation is present. Tricuspid Valve: The tricuspid valve is not well visualized. There is trace tricuspid regurgitation. Pulmonary artery pressures cannot be estimated because of the lack of a measurable TR jet velocity but the IVC suggests a CVP of around 3 mmHg. Pulmonic Valve: The pulmonic valve is not well visualized. There is no pulmonic valvular regurgitation. Great Vessels: The aortic root is not well visualized. The ascending aorta could not be visualized. The pulmonary is not well visualized. The IVC is of normal diameter and collapses greater than 50% with a sniff. This suggests a low right atrial pressure of 3 mm Hg. Pericardium/ Pleura There is no pericardial effusion. There is no pleural effusion. MMode/2D Measurements & Calculations LVIDd: 6.1 cm LVOT diam: 1.7 cm LVIDs: 4.3 cm asc Aorta Diam: 3.1 cm FS: 29.4 % Ao Arch Diam (Prox Trans): 2.0 cm EPSS: 1.7 cm IVSd: 0.98 cm LVPWd: 0.93 cm LV li. diameter/BSA (cm/m^2): 2.9 LV sys. diameter/BSA (cm/m^2): 2.1 LA A2 area: 37.0 cm2 RA long axis: 6.7 cm LA A4 area: 34.2 cm2 RA area: 21.3 cm2 LA length (vol): 7.2 cm RA vol: 58.0 ml LA vol: 148.2 ml RA : 27.7 ml/m2 LA vol index: 70.7 ml/m2 IVC diam: 2.3 cm TAPSE: 2.6 cm Doppler Measurements & Calculations Ao V2 max: 342.0 cm/sec LVOT Max Marco A: 97.1 cm/sec Ao V2 mean: 249.8 cm/sec LV V1 max P.8 mmHg Ao max P.8 mmHg LV V1 VTI: 23.9 cm Ao mean P.1 mmHg DAVY(I,D): 0.61 cm2 Ao V2 VTI: 85.6 cm DAVY(V,D): 0.62 cm2 sev ratio: 0.28 DAVY indexed to BSA (cm^2/m^2): 0.29 MV E max marco a: 174.2 cm/sec TR max marco a: 275.7 cm/sec MV A max marco a: 138.4 cm/sec TR max P.4 mmHg MV E/A: 1.3 PA V2 max: 144.5 cm/sec Med Peak E' Marco A: 4.2 cm/sec PA V2 mean: 109.5 cm/sec E/E' med: 41.3 PA mean P.1 mmHg Lat Peak E' Marco A: 4.3 cm/sec PA pr(Accel): 12.2 mmHg E/E' lat: 40.3 E/e' average: 40.8 MV dec time: 0.33 sec MVA(VTI): 0.83 cm2 MV V2 mean: 108.0 cm/sec SV(LVOT): 52.2 ml MV mean P.4 mmHg MV V2 VTI: 62.9 cm Reading Physician:12:04 PM
--- NOTE | 2025-03-13 13:17 | OT.IP.EVAL ---
Past Medical History (Last Reviewed 03/13/25 @ 07:37 by Joseph Charles MD) Anxiety Ascites Bruises easily Change in weight Chronic anemia Cirrhosis Congestive heart failure Diabetes Difficulty walking Esophageal and gastric varices Hard of hearing History of anemia Hyperlipidemia Hypertension Internal hemorrhoids Joint pain Memory loss Murmur, cardiac Obesity Pleural effusion Recurrent falls Splenomegaly Type 2 diabetes mellitus Weakness Surgical History (Last Reviewed 03/13/25 @ 07:37 by Joseph Charles MD) H/O vein stripping History of bilateral knee arthroplasty History of esophagogastroduodenoscopy (EGD) History of tonsillectomy S/P TIPS (transjugular intrahepatic portosystemic shunt) Occupational Therapy Inpatient Evaluation/Re-Eval M1 PT/OT-IP Prior Functional Status Start: 03/13/25 12:50 Freq: NEEDED Status: Active Protocol: Document 03/13/25 10:05 AB (Rec: 03/13/25 13:07 AB [id number]) Medical Review Prior Functional Status Medical History Yes Reviewed Communication able to make needs known Mobility and Gait pt stated that she was modified independent with all mobilities and ambulation without AD but occasionally uses either a FWW or a SPC depending on how steady she feels; h/o falls Social History Household Members none Living Arrangements House Number of Floors ( One Floor Floors) Number of Stairs To no steps to enter Enter/Railing? pt lives in a snf: [facility] Home Environment Tub/Shower Home Equipment Front Wheel Walker,Straight Cane,Raised Toilet Seat Without Armrests,Tub Transfer Bench,Hand Held Shower, Grab Bars In Shower M1 PT/OT-IP Prior Functional Status Start: 03/13/25 12:53 Freq: NEEDED Status: Active Protocol: Document 03/13/25 11:45 [facility] (Rec: 03/13/25 13:17 [facility] Desktop) Medical Review Prior Functional Status Communication I Mobility and Gait Pt uses her FWW at home Activities of Daily Per pt able to do all her ADL and IADL needs. Pt's Living and IADL's daughter supervises her meds. Pt admits to forgetting to take her pills at times. Social History Household Members none Living Arrangements House Number of Floors ( One Floor Floors) Number of Stairs To No steps to enter. Enter/Railing? Home Environment Standard Height Toilet,Tub/Shower Home Equipment Front Wheel Walker,Bedside Commode,Raised Toilet Seat Without Armrests,Tub Transfer Bench,Hand Held Shower, Grab Bars In Shower Additional Social Pt lives in [place] with her daughters close by to History Comment assist as needed. M2 OT-IP Current Condition Start: 03/13/25 12:53 Freq: Status: Active Protocol: Document 03/13/25 11:45 [facility] (Rec: 03/13/25 13:17 [facility] Desktop) Occupational Therapy Current Condition Current Condition Evaluation Date 03/13/25 Treatment Diagnosis PNA Diagnosis Onset Date 03/12/25 M3 OT- IP Subjective and Pain Start: 03/13/25 12:53 Freq: Status: Active Protocol: Document 03/13/25 11:45 [facility] (Rec: 03/13/25 13:17 [facility] Desktop) OT- Subjective Occupational Therapy Visit Type Type Initial Evaluation Visit Start Time 11:45 Visit Stop Time 12:45 Occupational Therapy Visit Comments Patient Comments Pt agreed to get up to the sink. Pt's daughter present in the room Patient/Caregiver TO go home. Goals OT Pain Assessment Pain When Pain Assessed At Rest Pain Present Pain Present Denied Pain M4 OT- IP ADL's Start: 03/13/25 12:53 Freq: Status: Active Protocol: Document 03/13/25 11:45 [facility] (Rec: 03/13/25 13:17 [facility] Desktop) OT [id number] Comments OT Self-Feeding Not at meal time. Comments OT ADL-Grooming General Evaluation Grooming Ability Standby Assistance Areas Needing Retrieving/Set-up of Grooming Items Assistance Comments OT Grooming Comments Able to do while standing with the FWW. OT ADL-Oral Care General Eval Oral Care Ability Independent OT ADL-Dressing General Eval Lower Body Dressing Maximum Assistance Ability Comments OT Dressing Comments Pt will benefit from assist for her compression socks. Spoke of LB dressing equipment with pt. OT ADL-Toileting General Evaluation Toileting Ability Standby Assistance Comments OT Toileting Pt able to do toileting with SBA. Comments OT ADL-Bathing Comments OT Bathing Comments Pt would benefit from assist for showering and due to high fall risk of water as has a tub bench for tub/ shower. Spoke having off/on switch for the shower and possibly have shower curtain cut so able to accommodate the tub bench. M5 OT- IP IADL's Start: 03/13/25 12:53 Freq: Status: Active Protocol: Document 03/13/25 11:45 [facility] (Rec: 03/13/25 13:17 [facility] Desktop) OT-Instrumental Activities of Daily Living Home Safety Awareness Ability to Problem Able to Problem Solve Solve Emergency Situations Medication Management Medication Pt will benefit from assist. Management Comments Money Management Money Management Pt will benefit from assist. Comments Meal Preparation Meal Preparation Pt will benefit from assist especially for meal prep as Comments pt has to be mindful of the salt restrictions for her meals. Bullard Machine Operator Bullard Machine Operator Pt will benefit from assist. Comments Driving Driving Concerns Identified Regarding Safety Driving Comments Pt's daughters mostly drives for her. M6 OT- IP Functional Cognition Start: 03/13/25 12:53 Freq: Status: Active Protocol: Document 03/13/25 11:45 [facility] (Rec: 03/13/25 13:17 [facility] Desktop) Cognitive Factors Limiting Selfcare Function Cognitive Ability Level of Alertness Alert Patient Orientation Name,Age,Birthday,Month,Date,Year,Day of Week,Place, Situation Attention Span Capable of Focused Attention,Capable of Sustained Ability Attention Ability to Follow Able to Follow One Step Commands Commands Memory Description Short Term Impaired Cognitive Tests SLUMS Pt scored 22/30 on the SLUMS which implies mild neurocognitive disorders. Pt not able to subtract 100- 23, able to state 14 animals in one minute, not able to state 4 digit number backwards, and able to answer 2/4 questions right after paragraph read. Cognitive Comments Cognitive Assessment Pt not wanting to get hearing aid and is very hard of Comments hearing. Pt is a bit insistent of her needs and just wanting to go home. On hospitalization pt states was going to do palliative but then decided not to go through with it. Pt however states did sign up for it so she thought recently- however not sure and wanting to do home health to maximize her needs before doing palliative. Notified CM of pt's request. OT- Vision and Hearing OT- Hearing Assessment OT- Hearing Hearing Impaired Assessment OT- Vision Assessment Visual Acuity Glasses All The Time Visual Attentiveness WFL Occular Pursuits WFL M7 OT- IP Mobility and Balance Start: 03/13/25 12:53 Freq: Status: Active Protocol: Document 03/13/25 11:45 [facility] (Rec: 03/13/25 13:17 [facility] Desktop) OT-Transfer Assessment Sit to and From Stand Sit to and from Standby Assistance Stand Transfers Transfer Ability Standby Assistance Technique Transfer Destination Chair,Toilet Transfer Technique Stand Step Pivot Devices Transfer Assistive Gait Belt,Front Wheeled Walker Devices Comments Mobility Comments SBA with FWW and O2 on RA 91-96%. OT- Balance Assessment Sitting Balance and Reactions Static Sitting Good Balance Ability Dynamic Sitting Good Balance Ability Standing Balance and Reactions Static Standing Good Balance Ability Dynamic Standing Fair Balance Ability M8 OT- IP Objective Assessments Start: 03/13/25 12:53 Freq: Status: Active Protocol: Document 03/13/25 11:45 [facility] (Rec: 03/13/25 13:17 [facility] Desktop) OT Gross Range of Motion Upper Extremity Range of Motion Assessment Bilaterally Impaired ROM Impairments LUE 0-95, RUE 0-105 OT Strength Upper Extremity Strength Shoulder 3- Elbow 4- Hand 4- M9 OT- IP Assessment and Plan Start: 03/13/25 12:53 Freq: Status: Active Protocol: Document 03/13/25 11:45 [facility] (Rec: 03/13/25 13:17 [facility] Desktop) OT Summary Assessment and Plan Potential Rehabilitation Fair Potential Analytic Complexity Moderate at Evaluation Summary OT Impairments Balance,Functional Cognition,Functional Mobility, Dressing,Toileting,Bathing,Toilet Transfers,Shower Transfers,Activity Tolerance Progress Towards Slow Progress due to Medical Issues,Slow Progress due Goals to Activity Tolerance,Slow Progress due to Cognition Assessment Summary Pt MOD complexity and main barriers are decreased activity tolerance, STM, and will need assist for dressing and bathing needs in addition to IADL needs. Per pt's daughter notes pt needing more assist but refuses to have assist. Pt has 3 daughters that live close by to assist as needed. Pt will benefit from 24/7 available assist and home health to especially go over safety of the environment and see how she does with IADL needs. Able to go over and give pt information of energy conservation. Goals Self-Feeding Goal Independent Grooming Goal Independent Dressing Goal Minimal Assistance Toileting Goal Standby Assistance Bathing Goal Minimal Assistance Toilet Transfer Goal Independent Shower Transfer Goal Standby Assistance Days to Meet Goals 60 Frequency of Treatment Other frequency 5x/week Treatment Plan OT Treatment Plan ADL Training,Functional Cognition Training,Functional Mobility,Patient/Family Education,Discharge Planning Discharge Recommendations OT Discharge Home with 24/7 Assist Available,Home Health Recommendations Home Equipment Needs LB dressing equipment, BSC Transportation Needs Private Vehicle at Discharge
--- NOTE | 2025-03-13 15:05 | CM.DANOTE ---
Initial DCP Assessment Note Pt is a 84 yo female, resident of [place], admitted for management of PNA, CHF. PCP: Abigail Malone, [facility] Payer: CANDY/Fabrizio Reviewed chart, met w/patient, daughter Annika on speaker phone. Patient lives alone in [place], mostly indp, can be forgetful at times. 3 daughters live in the area and help as needed with higher ADLs. Patient/family request a new referral be sent to Critical access hospital. Discussed Palliative Care; patient reports her PCP completed the interest form and sent to [facility], patient is on their wait list. Patient/family okay with to start then hopefully transition to Palliative Care services. Emailed this referral to Sonali at Critical access hospital. F2F, order and clinical. Plan: Discharge home with family and Critical access hospital services. YULIET Billinsg Discharge Planning/Care Management CM Discharge Assessment Start: 03/12/25 20:37 Freq: Status: Active Protocol: Document 03/13/25 15:02 [facility] (Rec: 03/13/25 15:05 [facility] [id number]) Discharge Planning Assessment Assigned Discharge YULIET Gao [employer]ing Techniques Demonstrator DPOA/Assigned [place] Designee Name Contact Information [phone] Advance Directives? No History Provided By Patient,Medical Record Prior Living House Arrangements Household Members none Type of Relies on Others transporation used prior to admit Independent with ADL Yes 's Is patient alert and Yes: With some forgetfulness oriented? Needs Assistance Managing Medications,Home Chores / Shopping With Patient/Family Home with Home Health Preference Comment Critical access hospital Barriers to No Discharge Discharge Plan Home with Home Health Transportation Family Arrangement Referrals Initiated Home Health Additional Comment Critical access hospital If patient plan is Yes home with home health: Has signed face to face form been completed?
[2025-03-13] MEDS: ACETAMINOPHEN 325 MG TABLET 650 MG PO (17:00)
[2025-03-13] MEDS: INSULIN LISPRO 100 UNIT/ML 3ML VIAL SUBCUT ×2 (17:18→21:08)
[2025-03-13] MEDS: INSULIN GLARGINE 100 UNIT/ML 3ML PEN 10 UNIT SUBCUT (18:20)
[2025-03-13] MEDS: AZITHROMYCIN 500 MG in DEXTROSE 5% IN WATER 250 ML 250 MG IV (22:26)
[2025-03-14 04:38] VITALS: BP 119/53; PULSE 77; RESP 16; TEMP 36.1; O2SAT 96
[2025-03-14 07:52] VITALS: PULSE 78; RESP 20; O2SAT 95
[2025-03-14] MEDS: ALBUTEROL/IPRATROPIUM 3 ML AMPUL INH (07:52)
--- NOTE | 2025-03-14 07:59 | PM.PN.1 ---
Subjective Subjective Date Patient Seen: 03/14/25 Exam Vital Signs (past 8 hours): - 03/14/25 04:38 Temperature 97 F L Pulse Rate 77 Respiratory Rate 16 Blood Pressure 119/53 L Pulse Oximetry 96 Oxygen Flow Rate 0 Oxygen Delivery Method Room Air Oxygen Flow Rate 0 Objective Labs 03/13/25 05:30 03/13/25 05:30 Labs: Laboratory Results - last 24 hr 03/13/25 03/13/25 03/14/25 17:05 20:22 07:42 POC Whole Bld Glucose 342 H 364 H 243 H D PFSH Medical History Anxiety Change in weight Bruises easily History of anemia Difficulty walking Weakness Memory loss Hard of hearing Congestive heart failure Chronic anemia Esophageal and gastric varices Obesity Hyperlipidemia Hypertension Type 2 diabetes mellitus Internal hemorrhoids Pleural effusion Splenomegaly Joint pain Recurrent falls Murmur, cardiac Ascites Cirrhosis Diabetes Surgical History S/P TIPS (transjugular intrahepatic portosystemic shunt) History of esophagogastroduodenoscopy (EGD) History of bilateral knee arthroplasty H/O vein stripping History of tonsillectomy Social History household members: none Smoking Status: Former smoker alcohol intake: never Assessment & Plan Assessment & Plan narrative: 1. Acute on chronic heart failure, unknown level of function. No echo available. 2. Acute respiratory failure with hypoxemia. 3. History of aortic valve replacement. Resume home Eliquis. 4. Hnq-pblaxqu-cxnwuqyfj diabetes. 5. Demand ischemia, troponins are mildly elevated. Active PLAN: -discontinue antibiotics -continue diuresis -wean oxygen as able -echo to assess LV function DVT prophylaxis Eliquis. CODE STATUS DNR/DNI. Time-Based Coding :: [TOTAL MINUTES] spent with patient and on the chart (including review of chart, obtaining history, exam, reviewing outside data, placing orders, documenting exam and treatment plan, and counseling patient) on [DATE]. Quality VTE Deep Vein Thrombosis/Pulmonary Embolism Present on Admission: No
[2025-03-14 08:00] VITALS: BP 114/46; PULSE 69; RESP 15; TEMP 36.3; O2SAT 94
[2025-03-14] MEDS: INSULIN GLARGINE 100 UNIT/ML 3ML PEN 10 UNIT SUBCUT (09:18)
[2025-03-14] MEDS: INSULIN LISPRO 100 UNIT/ML 3ML VIAL SUBCUT ×2 (09:19→12:12)
[2025-03-14] MEDS: TORSEMIDE 10 MG TABLET 60 MG PO (09:24)
[2025-03-14] MEDS: LACTULOSE 20 GM/30 ML SOLUTION PO ×2 (09:24→12:17)
[2025-03-14] MEDS: CHOLECALCIFEROL (VITAMIN D3) 1,000 UNIT TABLET 1000 UNIT PO (09:25)
[2025-03-14] MEDS: ASPIRIN EC 81 MG TABLET PO (09:25)
[2025-03-14] MEDS: PANTOPRAZOLE DR 40 MG TABLET PO (09:25)
[2025-03-14] MEDS: APIXABAN 5 MG TABLET PO (09:25)
[2025-03-14] MEDS: MULTIVITAMIN 1 TABLET 1 TAB PO (09:25)
[2025-03-14] MEDS: RIFAXIMIN 200 MG TABLET 400 MG PO (09:28)
[2025-03-14] MEDS: SODIUM CHLORIDE 0.9% FLUSH 10 ML IV (09:28)
[2025-03-14] MEDS: POTASSIUM CHLORIDE 10 MEQ TAB 30 MEQ PO (09:28)
[2025-03-14] MEDS: SPIRONOLACTONE 25 MG TABLET 50 MG PO (09:28)
--- NOTE | 2025-03-14 12:17 | P.DS_ITS ---
History of Present Illness History of Present Illness Date Patient Seen: 03/14/25 Chief complaint: SOB, was on oxygen but isnt currently Narrative: 84-year-old female with past medical history of CHF, aortic valve replacement on Eliquis, GERD, cirrhosis on lactulose, and gzp-otlazaz-jfyqsdsck diabetes presents with shortness of breath. Per the patient's report, over the last few days, the patient has had increasing lower extremity with orthopnea. The patient especially has shortness of breath with exertion. The patient however denies any recent coughing, fever, chills, chest pain or palpitation. The patient states that she has been compliant with taking her torsemide at home. In our emergency room, the patient was hemodynamically stable. Labs were relatively benign with BNP that is not elevated. Chest x-ray however shows signs of may be some pleural effusion. CT angio of the chest shows no signs of PE but did show atelectasis versus signs of pneumonia. There is again signs of left pleural effusion. The patient did require 2 L of oxygen while ambulating but was 90% at rest. Discharge Providers Provider Date of admission: 03/12/25 20:12 Discharge Date: 03/14/25 Primary care physician: Caron Ruiz PA-C Consults: 03/12/25 21:24 Consult to Occupational Therapy Evaluate & Treat Comment: Physician Instructions: Evaluate and treat Consult to Physical Therapy Evaluate & Treat Comment: Physician Instructions: Evaluate and Treat 03/13/25 14:12 Consult to Home Health Routine Comment: Reason For Exam: Home health Discharge provider: Arjun Daniels MD Summary Hospital Course Hospital Course: 1. Acute on chronic heart failure, unknown level of function. Echo with 55-60% ejection fraction and well-seated aortic valve. 2. Acute respiratory failure with hypoxemia. Pneumonia ruled out. 3. History of aortic valve replacement. Resumed home Eliquis. 4. Bfk-icrzftp-xltybnhmn diabetes. Resume glipizide at home. 5. Demand ischemia, troponins are mildly elevated. 6. Thrombocytopenia, Possibly chronic. Her usual cardiac medications were continued and she was diuresed with improvement in her hypoxemia and dyspnea. The antibiotics were stopped. The echocardiogram showed 55-60% ejection fraction and what appeared to be a functioning aortic valve replacement. She will need to follow-up with primary care and consider follow-up/repeating CT chest for the pleural effusion assessment. She will need outpatient PCP review of her thrombocytopenia. She presented with platelets of 84, dropping to 60. We do not have prior records to confirm that this is chronic. She has not been on any heparin during this hospital stay. She is DNR. Status at Discharge Cognitive/behavioral status at discharge: oriented Functional status at discharge: independent ambulation Overall status at discharge: patient is back to baseline Exam Vital Signs (past 8 hours): - 03/14/25 04:38 03/14/25 07:52 03/14/25 08:00 Temperature 97 F L 97.4 F L Pulse Rate 77 78 69 Respiratory Rate 16 20 15 Blood Pressure 119/53 L 114/46 L Pulse Oximetry 96 95 94 Oxygen Delivery Method Room Air Oxygen Flow Rate 0 0 Oxygen Delivery Method Room Air Oxygen Flow Rate 0 Narrative Exam Narrative: Alert and oriented x3. No apparent distress. Heart is regular rate and rhythm without murmur. Lungs are clear to auscultation bilaterally. Extremities have no ankle edema. There is extensive bruising on both arms and her chest. The platelets are low at 60. The glucose is between 178 and 364. The echocardiogram shows an ejection fraction of 55-60% with a well-seated bioprosthetic aortic valve. Objective Labs 03/13/25 05:30 03/13/25 05:30 Labs: Laboratory Results - last 24 hr 03/13/25 03/13/25 03/14/25 17:05 20:22 07:42 POC Whole Bld Glucose 342 H 364 H 243 H D 03/14/25 11:55 POC Whole Bld Glucose 336 H [facility] Medical History Anxiety Change in weight Bruises easily History of anemia Difficulty walking Weakness Memory loss Hard of hearing Congestive heart failure Chronic anemia Esophageal and gastric varices Obesity Hyperlipidemia Hypertension Type 2 diabetes mellitus Internal hemorrhoids Pleural effusion Splenomegaly Joint pain Recurrent falls Murmur, cardiac Ascites Cirrhosis Diabetes Surgical History S/P TIPS (transjugular intrahepatic portosystemic shunt) History of esophagogastroduodenoscopy (EGD) History of bilateral knee arthroplasty H/O vein stripping History of tonsillectomy Social History household members: none Smoking Status: Former smoker alcohol intake: never Discharge Plan Discharge Plan Patient Disposition: Home Provider Discharge Comment: Follow-up with Caron Ruiz PA-C in 1-2 weeks. Discharge orders & Medications Prescriptions: Continued potassium chloride 10 mEq Tablet Extended Release 30 meq PO DAILY pantoprazole 40 mg Tablet,Delayed Release (Dr/Ec) 40 mg PO BID spironolactone 25 mg tablet 50 mg PO BID glipizide 5 mg tablet 5 mg PO BID lactulose 10 gram/15 mL solution 20 g PO QID Rx Instructions: 30ml by mouth three a day (until 2-3 loose stools daily) cholecalciferol (vitamin D3) [Vitamin D3] 25 mcg (1,000 unit) Tablet 25 mcg PO DAILY Patient Comments: pt stated on hold for now Xifaxan 550 mg tablet 550 mg PO BID (DME) FreeStyle Lite Strips Strip 1 strip MISCELLANEOUS 4XD (DME) lancets [FreeStyle Lancets] 28 gauge misc 1 ea MISCELLANEOUS 3XD albuterol sulfate 90 mcg/actuation HFA aerosol inhaler 2 puff inhalation Q4-6H PRN (Reason: shortness of breath or wheezing) apixaban 5 mg tablet 5 mg PO BID aspirin 81 mg tablet,delayed release (DR/EC) 81 mg PO DAILY betamethasone valerate 0.1 % cream 1 applic topical DAILY PRN (Reason: itching) Januvia 100 mg tablet 100 mg PO DAILY ketoconazole 2 % cream 1 applic topical DAILY multivitamin Tablet 1 tab PO DAILY torsemide 40 mg tablet 60 mg PO DAILY Follow up/Referrals: Caron Ruiz PA-C [Primary Care Provider, Medical] Diet/Activity/Treatments Diet: Low-cholesterol Visit Report/Discharge Packet Stand Alone Forms: Patient Portal/API, Stroke Signs & Symptoms Discharge Data Primary Care Provider: Caron Ruiz Quality VTE Deep Vein Thrombosis/Pulmonary Embolism Present on Admission: No
[2025-03-14 13:49] LABS: Hemoglobin A1C% w Est Avg Glu 5.0 % (4.0-6.0)
--- NOTE | 2025-03-14 14:15 | CM.DPNOTE ---
Addendum entered by YULIET Reynolds 03/14/25 14:21: ADD: IMM reviewed and provided. Original Note: DC Note Discharge home w/daughters to assist, family to transport. Updated [facility] and emailed DC Summary. DIAMOND
--- NOTE | 2025-03-14 14:20 | PC.NURSE ---
Day shift: Left unit at approx 1420. Two family members are here to help her get home. LEft via WC and taken by AURELIA Raman. Paperwork is singed and all questions answered. Encouraged to f/u with PCP as VANNESSA. Pt has all personal belongings.
== END 2025-03-14 14:23 | disposition home health service (06) | DRG 291 ==
LOC: ED 18:09 → AC 20:13
PROVIDERS: Emergency Medicine; Admitting Provider Internal Medicine; Emergency Provider Emergency Medicine; Family Provider Family Medicine; PCP Physician Assistant; Referring Provider Emergency Medicine; Visit Provider Internal Medicine
DX: I11.0 Hypertensive heart disease with heart failure (principal); J96.01 Acute respiratory failure with hypoxia; I24.89 Other forms of acute ischemic heart disease; I50.9 Heart failure, unspecified; E11.9 Type 2 diabetes mellitus without complications; D69.6 Thrombocytopenia, unspecified; J42 Unspecified chronic bronchitis; Z66 Do not resuscitate; Z95.2 Presence of prosthetic heart valve; Z79.01 Long term (current) use of anticoagulants; Z87.891 Personal history of nicotine dependence; Z79.84 Long term (current) use of oral hypoglycemic drugs
CPT/HCPCS: 36415; 71045; 71275; 80048; 80053; 80061; 82962; 83036; 83605; 83880; 84484; 85025; 85610; 87633; 94640; 94760; 96372; 96374; 97116; 97162; 97166; 97530; 99283; 99284; C8929; J0696; J1815; J1938; J2919; Q9957; Q9967